=== PATIENT | male | born 1955 | race Caucasian/White ===

== ENCOUNTER 2017-10-13 01:01 | Observation (INO) | payer SELFPAY ==
[~2017-10-13] VITALS: Ht 177.8 cm; Wt 88.8 kg
[2017-10-13] VITALS (7 sets, daily range): BP systolic 153–193; BP diastolic 81–96; PULSE 69–78; TEMP 36.5–37.7; O2SAT 93–98; Ht 177.8 cm; Wt 88.8 kg
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
[2017-10-13 02:07] LABS: ALBUMIN 3.9 gm/dl (3.4-5.0); CREATININE 1.24 mg/dl (0.60-1.40)
[2017-10-13 02:15] LABS: CKMB 6.3 ng/ml (0.5-3.6); POTASSIUM 4.2 mmol/L (3.5-5.1); TOTAL PROTEIN 8.2 gm/dl (6.4-8.2)
[2017-10-13 02:42] LABS: BASO % 0.2 %; BASO ABS # 0.02 K/uL (0-0.2); EOS ABS # 0.12 K/uL (0-0.5); HEMOGLOBIN 15.5 g/dL (14.0-18.0); IG# 0.07 K/uL (0.00-0.02); LYMPH % 13.3 %; LYMPH ABS # 1.65 K/uL (1.2-3.4); MEAN CELL VOLUME 95.1 fL (80-100); MEAN CORPUSCULAR HEMOGLOBIN 32.8 pg (25-34); MEAN CORPUSCULAR HGB CONC 34.4 g/dl (32-36); MEAN PLATELET VOLUME 10.3 fL (7.4-10.4); MONO % 5.5 %; MONO ABS # 0.68 K/uL (0.11-0.59); NEUT % 79.4 %; NEUT ABS # 9.89 K/uL (1.4-6.5); PLATELET COUNT 288 K/uL (130-400); RED CELL DISTRIBUTION WIDTH CV 13.5 % (11.5-14.5); RED CELL DISTRIBUTION WIDTH SD 46.9 fL (36.4-46.3); WHITE BLOOD COUNT 12.43 K/uL (4.8-10.8)
[2017-10-13 04:00] LABS: PTT PATIENT 23.6 SECONDS (21.0-31.0)
[2017-10-13] MEDS ORDERED: LORAZEPAM 2 MG/ML 1 ML VIAL IV PRN (04:30)
[2017-10-13] MEDS ORDERED: ACETAMINOPHEN 325 MG TAB PO PRN (04:30)
[2017-10-13] MEDS ORDERED: OXYCODONE/ACETAMINOPHEN 5-325 TAB PO PRN (04:30)
[2017-10-13] MEDS ORDERED: PROCHLORPERAZINE INJ 5 MG in SYRINGE 4 ML IV PRN (04:30)
[2017-10-13] MEDS ORDERED: GABAPENTIN 600 MG TAB PO SCH (04:30)
[2017-10-13] MEDS ORDERED: LORAZEPAM INJ 1 MG in SYRINGE 0.5 ML IV PRN (04:30)
[2017-10-13] MEDS ORDERED: NITROGLYCERIN 0.4 MG SL PER TAB CHARGE SL PRN (04:30)
[2017-10-13] MEDS ORDERED: MULTI-VITAMIN INFUSION INJ 10 ML, THIAMINE HCL INJ 100 MG, FoLIC ACID INJ 1 MG in SODIU... IV STA (04:40)
[2017-10-13] MEDS ORDERED: GABAPENTIN 600 MG TAB PO STA (04:42)
[2017-10-13] MEDS ORDERED: CLONIDINE HCL 0.1 MG TAB PO STA (04:43)
[2017-10-13] MEDS ORDERED: LISINOPRIL 5 MG TAB PO STA (04:54)
[2017-10-13] MEDS ORDERED: IV FLUIDS COMPLETED PRN (05:15)
[2017-10-13 06:00] LABS: INR 0.9 (0.9-1.1)
[2017-10-13] MEDS ORDERED: INFLUENZA ADMINISTRATION CHARGE ONE (06:15)
[2017-10-13] MEDS ORDERED: PNEUMOCOCCAL POLYSACCHARIDES 25 MCG/0.5 ML VIAL/SYR IM. ONE (06:15)
[2017-10-13] MEDS ORDERED: INFLUENZA VIRUS QUAD VACCINE 0.5 ML SYR IM. ONE (06:15)
[2017-10-13] MEDS ORDERED: PNEUMOCOCCAL ADMINISTRATION CHARGE ONE (06:15)
--- NOTE | 2017-10-13 06:58 | DIAGNOSTIC IMAGING REPORT ---
HEAD WITHOUT CONTRAST (CT) CLINICAL HISTORY: 61 years-old Male with episode of unresponsiveness. Acutely altered mental status TECHNIQUE: Multiple axial CT images of the head were obtained without contrast. A dose lowering technique was utilized adhering to the principles of ALARA. CT DOSE: 691.05 mGy.cm COMPARISON: None. FINDINGS: No acute intracranial hemorrhage, midline shift, intracranial mass, hydrocephalus, territorial ischemia or abnormal extra-axial collection. Minimal atrophy. Ill-defined areas of low attenuation are seen within the periventricular white matter suggesting chronic microvascular ischemic changes. Encephalomalacia of the right temporal and frontal lobes compatible with remote infarction. The calvarium is intact. Severe mucoperiosteal thickening with volume loss of the right maxillary sinus. Moderate to severe mucoperiosteal thickening of the left maxillary sinus. Moderate ethmoid sinus disease. Mild sphenoid sinus disease. IMPRESSION: 1. No acute intracranial abnormality identified. 2. Encephalomalacia of the right temporal and frontal lobes compatible with remote infarction. 3. Paranasal sinus disease as above. The above report was generated using voice recognition software. It may contain grammatical, syntax or spelling errors. Electronically signed by: Vinnie Anglin M.D. 10/13/2017 6:56 AM Dictated Date/Time: 10/13/2017 6:53 AM
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
[2017-10-13] MEDS ORDERED: CLONIDINE HCL 0.1 MG TAB PO ONE (08:30)
[2017-10-13] MEDS: ENOXAPARIN 40 MG/0.4 ML SYR SQ SCH (08:43)
[2017-10-13] MEDS ORDERED: CHLORTHALIDONE 25 MG TAB PO SCH (09:00)
[2017-10-13] MEDS ORDERED: GADAVIST IV PRN (10:45)
--- NOTE | 2017-10-13 11:02 | DIAGNOSTIC IMAGING REPORT ---
BRAIN COMBO FOR SEIZURE HISTORY: 61 years-old Male seizure patient found unresponsive. COMPARISON: CT head of same day TECHNIQUE: Multiplanar multisequence MRI the brain was obtained both with and without the use of 8 mL Gadavist utilizing seizure protocol. FINDINGS: There is no restricted diffusion to suggest acute infarction. The midline structures including the corpus callosum, brainstem, optic chiasm, pituitary gland and infundibulum appear unremarkable the sagittal T1 series. No cerebellar tonsillar herniation. Degenerative changes of the imaged cervical spine are noted. There is no acute intracranial hemorrhage, midline shift, abnormal extra-axial collection or hydrocephalus. Minimal periventricular and subcortical T2/FLAIR elongation suggests mild chronic microvascular ischemic changes. Encephalomalacia and gliosis is noted within the right frontal and bilateral temporal lobes suggesting areas of prior infarction. The thin section coronal T2 images are moderately motion degraded. No evidence of mesial temporal sclerosis, cortical dysplasia or acute seizure focus. Indeterminate 2 mm T2 hyperintense focus involves the medial right temporal lobe, image 27 series 8. There is no abnormal intra-axial or extra-axial enhancement identified. The major flow voids at the level of the skull base are patent. The left vertebral artery appears dominant. Trace left mastoid effusion. Severe right and moderate severe left maxillary mucosal disease with mild inferior right frontal and moderate bilateral ethmoid sinus mucosal disease. Mild to moderate mucosal disease also seen within the sphenoid sinuses. Scalp, covering and soft tissues are unremarkable. IMPRESSION: 1. No acute intracranial abnormality identified. No acute infarction or abnormal enhancement. 2. Encephalomalacia and gliosis within the right frontal and bilateral temporal lobes, right greater than left suggests areas of remote infarction. 3. Suggested minimal chronic microvascular ischemic changes. 4. Trace left pleural effusion with paranasal sinus disease as above. The above report was generated using voice recognition software. It may contain grammatical, syntax or spelling errors. Electronically signed by: Vinnie Anglin M.D. 10/13/2017 11:01 AM Dictated Date/Time: 10/13/2017 10:51 AM
[2017-10-13] MEDS: GABAPENTIN 600MG Q6H DOSE PO SCH ×2 (11:52→18:37)
--- NOTE | 2017-10-13 14:06 | DIAGNOSTIC IMAGING REPORT ---
CAROTID DOPPLER NECK ART CLINICAL HISTORY: 61 years-old Male with syncope. Acute syncope COMPARISON: None available TECHNIQUE: Multiple real time sonographic images of the carotid bifurcations were obtained assessing espinosa scale, color Doppler and spectral wave form appearance FINDINGS: RIGHT INTERNAL CAROTID: The peak systolic velocity measured 76 cm/sec. The end diastolic velocity measured 29 cm/sec. The ICA to CCA ratio measured 1.1 which correlates with a stenosis of 0-50%. LEFT INTERNAL CAROTID: The peak systolic velocity measured 102 cm/sec. The end diastolic velocity measured 16 cm/sec. The ICA to CCA ratio measured 0.7 which correlates with a stenosis of 0-50%. There is normal antegrade vertebral flow bilaterally. IMPRESSION: 1. No hemodynamically significant stenosis or significant atherosclerotic plaquing. 2. Normal antegrade vertebral flow bilaterally. The above report was generated using voice recognition software. It may contain grammatical, syntax or spelling errors. Electronically signed by: Vinnie Anglin M.D. 10/13/2017 2:05 PM Dictated Date/Time: 10/13/2017 2:03 PM
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
[2017-10-13] MEDS ORDERED: LISINOPRIL 10 MG TAB PO ONE (19:15)
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
[2017-10-14] VITALS (8 sets, daily range): BP systolic 166–205; BP diastolic 88–120; PULSE 57–63; TEMP 36.7–37.3; O2SAT 95–97
[2017-10-14] MEDS: GABAPENTIN 600MG Q8H DOSE PO SCH ×3 (00:53→16:55)
[2017-10-14 06:00] LABS: BASO % 0.2 %; BASO ABS # 0.02 K/uL (0-0.2); EOS ABS # 0.33 K/uL (0-0.5); HEMATOCRIT 42.1 % (42-52); HEMOGLOBIN 13.8 g/dL (14.0-18.0); IG# 0.02 K/uL (0.00-0.02); LYMPH % 27.9 %; LYMPH ABS # 2.29 K/uL (1.2-3.4); MEAN CELL VOLUME 96.8 fL (80-100); MEAN CORPUSCULAR HEMOGLOBIN 31.7 pg (25-34); MEAN CORPUSCULAR HGB CONC 32.8 g/dl (32-36); MEAN PLATELET VOLUME 10.3 fL (7.4-10.4); MONO % 11.4 %; MONO ABS # 0.94 K/uL (0.11-0.59); NEUT % 56.3 %; NEUT ABS # 4.61 K/uL (1.4-6.5); PLATELET COUNT 268 K/uL (130-400); RED CELL DISTRIBUTION WIDTH CV 13.9 % (11.5-14.5); RED CELL DISTRIBUTION WIDTH SD 49.5 fL (36.4-46.3); WHITE BLOOD COUNT 8.21 K/uL (4.8-10.8)
[2017-10-14 06:32] LABS: CALCIUM 8.4 mg/dl (8.5-10.1); CREATININE 0.98 mg/dl (0.60-1.40); POTASSIUM 4.1 mmol/L (3.5-5.1)
[2017-10-14] MEDS ORDERED: CLONIDINE HCL 0.1 MG TAB PO SCH (08:00)
[2017-10-14] MEDS ORDERED: CLONIDINE HCL 0.1 MG TAB PO ONE (08:00)
[2017-10-14] MEDS ORDERED: MULTIVITAMIN TAB PO SCH (09:00)
[2017-10-14] MEDS ORDERED: LISINOPRIL 5 MG TAB PO SCH (09:00)
[2017-10-14] MEDS ORDERED: LISINOPRIL 20 MG TAB PO SCH (09:00)
[2017-10-14] MEDS ORDERED: AMLODIPINE BESYLATE 5 MG TAB PO SCH (09:00)
[2017-10-14] MEDS ORDERED: THIAMINE HCL 100 MG TAB PO SCH (09:00)
[2017-10-14] MEDS: ENOXAPARIN 40 MG/0.4 ML SYR SQ SCH (09:05)
--- NOTE | 2017-10-14 10:46 | ECHOCARDIOGRAM REPORT ---
*NOTICE TO RECEIVING DEMOCRAT AGENCY This information is strictly Confidential and protected under [place] law. [place] law prohibits you from making any further disclosure of this information unless further disclosure is expressly permitted by the written consent of the person to whom it pertains or is authorized by law. A general authorization for the release of medical or other information is not sufficient for this purpose. Hospital accepts no responsibility if the information is made available to any other person, INCLUDING THE PATIENT. Interpretation Summary * Name: VIRGINIE ETIENNE Study Date: 10/13/2017 02:07 PM BP: 153/84 mmHg * Patient Location: C.2T\S\S230\S\2 HR: 79 * : 1955 (M/d/yyyy) Gender: Male Height: 70 in * Age: 61 yrs Ethnicity: CA Weight: 186 lb * Ordering Physician: Marilyn Martínez * Referring Physician: UNKNOWN * Performed By: Sherri Monge RCS * * Reason For Study: ABN TROP / SYNCOPE VS SEIZURE * BSA: 2.0 m2 * -- Conclusions -- * Normal LV chamber size with mild concentric LVH. * Normal LV systolic function, EF 55-60% * No segmental left ventricular wall motion abnormalities are noted. * Grade II diastolic dysfunction. * No significant valvular pathology. * Intact interatrial septum. Procedure Details * A complete two-dimensional transthoracic echocardiogram was performed (2D, M-mode, Doppler and color flow Doppler). * A saline contrast injection was performed to assess for cardiac shunting. * The injection was performed through an intravenous line in the left arm. * The attending nurse who injected the saline contrast was RANDALL HARE, RN. * A total of 20 cc of agitated saline was given. Left Ventricle * The left ventricle is normal in size. * There is mild concentric left ventricular hypertrophy. * Left ventricular systolic function is normal. * No segmental left ventricular wall motion abnormalities are noted. * Ejection Fraction = 55-60%. * The left ventricular wall motion is normal. Right Ventricle * The right ventricular cavity size is normal (basal dimension <4.2 cm in right ventricular apical 4-chamber view). * The right ventricular systolic function is normal as assessed by tricuspid annular plane systolic excursion (TAPSE) (normal >1.5 cm). Atria * The left atrial size is normal. * Right atrial size is normal. * The interatrial septum is intact with no evidence for an atrial septal defect. Mitral Valve * The mitral valve is normal in structure and function. Tricuspid Valve * The tricuspid valve is normal in structure and function. Aortic Valve * The aortic valve is normal in structure and function. Pulmonic Valve * The pulmonary valve is not well seen, but the Doppler examination is normal without significant regurgitation or stenosis. Great Vessels * The aortic root is normal size. Pericardium/Pleural * There is no pericardial effusion. Left Ventricular Diastolic Function * Diastolic dysfunction, Grade II (pseudonormalization pattern). MMode 2D Measurements and Calculations IVSd 2.0 cm IVSs 1.9 cm LVIDd 4.1 cm LVIDs 3.0 cm LVPWd 1.4 cm LVPWs 1.5 cm IVS/LVPW 1.5 FS 26.4 % EDV(Teich) 75.3 ml ESV(Teich) 36.0 ml EF(Teich) 52.2 % EDV(cubed) 70.2 ml ESV(cubed) 27.9 ml EF(cubed) 60.2 % % IVS thick -1.51 % % LVPW thick 9.6 % LV mass(C)d 284.6 grams LV mass(C)dI 140.6 grams/m\S\2 LV mass(C)s 200.3 grams LV mass(C)sI 99.0 grams/m\S\2 SV(Teich) 39.3 ml SI(Teich) 19.4 ml/m\S\2 SV(cubed) 42.3 ml SI(cubed) 20.9 ml/m\S\2 Ao root diam 3.3 cm Ao root area 8.6 cm\S\2 ACS 2.0 cm LA dimension 2.5 cm LA/Ao 0.76 LVOT diam 2.0 cm LVOT area 3.2 cm\S\2 LVAd ap4 42.9 cm\S\2 LVLd ap4 9.4 cm EDV(MOD-sp4) 156.5 ml EDV(sp4-el) 166.1 ml LVAs ap4 25.6 cm\S\2 LVLs ap4 7.3 cm ESV(MOD-sp4) 72.1 ml ESV(sp4-el) 76.3 ml EF(MOD-sp4) 53.9 % EF(sp4-el) 54.1 % LVAd ap2 33.7 cm\S\2 LVLd ap2 8.4 cm EDV(MOD-sp2) 106.0 ml EDV(sp2-el) 114.5 ml LVAs ap2 20.2 cm\S\2 LVLs ap2 6.4 cm ESV(MOD-sp2) 53.6 ml ESV(sp2-el) 53.9 ml EF(MOD-sp2) 49.4 % EF(sp2-el) 52.9 % LVLd %diff -11.67 % EDV(MOD-bp) 133.0 ml LVLs %diff -13.41 % ESV(MOD-bp) 67.3 ml EF(MOD-bp) 49.4 % SV(MOD-sp4) 84.3 ml SI(MOD-sp4) 41.7 ml/m\S\2 SV(MOD-sp2) 52.3 ml SI(MOD-sp2) 25.9 ml/m\S\2 SV(MOD-bp) 65.7 ml SI(MOD-bp) 32.5 ml/m\S\2 SV(sp4-el) 89.9 ml SI(sp4-el) 44.4 ml/m\S\2 SV(sp2-el) 60.6 ml SI(sp2-el) 29.9 ml/m\S\2 Doppler Measurements and Calculations MV E max jonathon 86.8 cm/sec MV A max jonathon 68.5 cm/sec MV E/A 1.3 MV P1/2t max jonathon 92.3 cm/sec MV P1/2t 87.9 msec MVA(P1/2t) 2.5 cm\S\2 MV dec slope 307.6 cm/sec\S\2 MV dec time 0.23 sec Ao V2 max 146.4 cm/sec Ao max PG 8.6 mmHg Ao max PG (full) 3.5 mmHg CAROLYN(V,A) 2.5 cm\S\2 CAROLYN(V,D) 2.5 cm\S\2 AI max jonathon 306.9 cm/sec AI max PG 37.7 mmHg AI dec slope 127.0 cm/sec\S\2 AI P1/2t 707.7 msec LV V1 max PG 5.1 mmHg LV V1 max 112.5 cm/sec MR max jonathon 616.0 cm/sec MR max PG 151.8 mmHg PA V2 max 90.6 cm/sec PA max PG 3.3 mmHg TR max jonathon 289.0 cm/sec
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
[2017-10-14] MEDS ORDERED: LEVETIRACETAM 500 MG TAB PO SCH ×2 (16:30→21:00)
[2017-10-14] MEDS ORDERED: LEVETIRACETAM 500 MG TAB PO ONE (16:30)
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
[2017-10-14] MEDS ORDERED: NRN600 PO (17:36)
[2017-10-14] MEDS ORDERED: LSN40 PO (17:36)
[2017-10-14] MEDS ORDERED: MULT-890 PO (17:36)
[2017-10-14] MEDS ORDERED: FLV1 PO (17:36)
[2017-10-14] MEDS ORDERED: NRV5 PO (17:36)
[2017-10-14] MEDS ORDERED: LEVE500T13 PO (17:36)
[2017-10-14] MEDS ORDERED: THM100 PO (17:36)
--- NOTE | 2017-10-14 17:47 | Discharge Instructions ---
Discharge Instructions Date of Service Oct 14, 2017. Admission Reason for Admission: Syncope Discharge Discharge Diagnosis / Problem: possible Seizure, Alcohol withdrawal symptoms Discharge Goals Goal(s): Decrease discomfort, Improve function, Diagnostic testing, Therapeutic intervention Activity Recommendations Activity Limitations: per Instructions/Follow-up section Driving or Machine Use: . Instructions / Follow-Up Instructions / Follow-Up Please follow-up with Dr. Valladares on October 18 at 12:45PM in [place] - this will now be your primary care office Please follow-up with Dr. Martínez, neurology, in 2-3 weeks * NO driving for 6 months; no heights, no swimming alone * You will be prescribed Keppra 500mg twice daily to prevent seizures * You will be on amlodipine 10mg daily and Lisinopril 40mg daily for blood pressure - primary care doctor will recheck blood pressure in the office * Please stop alcohol use - take thiamine, folic acid, and multivitamin daily. Take Gabapentin for the next 5 days Current Hospital Diet Patient's current hospital diet: AHA Diet (Heart Healthy) Discharge Diet Recommended Diet: AHA Diet (Heart Healthy) Pending Studies Studies pending at discharge: no Medical Emergencies . Who to Call and When: Medical Emergencies: If at any time you feel your situation is an emergency, please call 911 immediately. . Non-Emergent Contact Non-Emergency issues call your: Primary Care Provider, Neurologist . . "Provider Documentation" section prepared by Bre Vick. . VTE Core Measure Inpt VTE Proph given/why not?: Enoxaparin (Lovenox)SQ
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
[2017-10-15] MEDS ORDERED: GABAPENTIN 600MG Q12H DOSE PO SCH (06:00)
--- NOTE | 2017-10-15 07:57 | ELECTROENCEPHALOGRAPH REPORT ---
FOR: Dr. Molina, Dr. Martínez and Marilyn Pride. CLINICAL DIAGNOSIS: Syncope with post-syncopal confusion, question seizure. ELECTROENCEPHALOGRAM DIAGNOSIS: Essentially normal during wakefulness and brief duration of drowsiness. DESCRIPTION OF TRACING: This EEG was done as a bedside recording and was of good technical quality with few or no muscle movement artifacts. Photic stimulation was performed. Video analysis of patient movements and behavior were obtained. Drowsiness is seen very briefly towards the end of the recording. During wakefulness, there is evidence for normal appearing background rhythm in the alpha range of up to 9-10 Hz of maximum frequency and 30 microvolts of maximum amplitude. This is maximum posterior head regions bilaterally symmetrical. Polymorphic mid frequency theta activity is seen over all head regions without clear focal or regional predominance. Anterior head region maximum bilaterally symmetrical low voltage fast activity in the beta range is present. Photic stimulation provoked some modest driving response of total photomyogenic or photoparoxysmal component. Drowsiness was very briefly recorded and shows no abnormalities. At no time during the waking or brief duration drowsy tracing is there evidence for potentially epileptogenic activity in the form of polyspike or spike wave bursts, focal sharp waves or focal spikes. INTERPRETATION: This electroencephalography is essentially normal during wakefulness without evidence for focal or generalized encephalopathy and without evidence for potentially epileptogenic activity, but the absence of the latter does not exclude the diagnosis of a seizure disorder and clinical correlation is required.
[2017-10-15] MEDS ORDERED: LISINOPRIL 40 MG TAB PO SCH (09:00)
[2017-10-15] MEDS ORDERED: AMLODIPINE BESYLATE 5 MG TAB PO SCH (09:00)
[2017-10-16] MEDS ORDERED: GABAPENTIN 600MG X1 DOSE PO SCH (08:00)
== END 2017-10-14 18:35 | disposition home or self-care (01) ==
LOC: EDBD 01:01 → C.EDB 01:02 → C.2T 03:28 → ENRESERV 03:56
PROVIDERS: ADMIT Family Medicine; ATTEND Family Medicine
DX: R55 Syncope and collapse (principal); I16.0 Hypertensive urgency; R79.89 Other specified abnormal findings of blood chemistry; F10.129 Alcohol abuse with intoxication, unspecified; Z87.891 Personal history of nicotine dependence; Z87.820 Personal history of traumatic brain injury

== ENCOUNTER 2023-11-22 11:56 | Inpatient (IN) ==
[2023-11-22] MEDS: OPTIRAY 320 125ml IV ONE (12:22)
[2023-11-22 12:28] LABS: iSTAT Creatinine 1.1 mg/dl (0.6-1.3); iSTAT Hemoglobin 17.3 g/dl (14.0-18.0); iSTAT Ionized Calcium 1.14 mmol/l (1.12-1.32); iSTAT Potassium 4.4 mmol/L (3.3-5.0)
[2023-11-22 12:28] LABS: Basophils # (auto) 0.03 K/uL (0.00-0.20); Basophils % (auto) 0.4 %; Eosinophils # (auto) 0.32 K/uL (0.00-0.50); Eosinophils % (auto) 3.7 %; Hematocrit (blood only) 51.4 % (42.0-52.0); Hemoglobin 17.3 g/dl (14.0-18.0); Immature Granulocytes # (auto) 0.08 K/uL (0.01-0.20); Immature Granulocytes % (auto) 0.9 %; Lymphocytes % (auto) 23.4 %; Mean Corpuscular Hemoglobin 31.5 pg (25.0-34.0); Mean Corpuscular Hgb Conc 33.7 g/dL (32.0-36.0); Mean Corpuscular Volume 93.6 fL (80.0-100.0); Mean Platelet Volume 10.1 fL (9.4-12.4); Monocytes # (auto) 0.72 K/uL (0.11-0.59); Monocytes % (auto) 8.4 %; Neutrophils % (auto) 63.2 %; Platelet Count 272 K/uL (130-400); RDW Coefficient of Variation 13.3 % (11.5-14.5); RDW Standard Deviation 45.8 fL (36.4-46.3); Red Blood Count 5.49 M/uL (4.70-6.10); White Blood Count 8.55 K/ul (4.8-10.8)
[2023-11-22] MEDS: LABETALOL HCL IV 5 MG/ML 20ML IV STA ×3 (12:42→13:57)
[2023-11-22] MEDS: LABETALOL HCL IV 5 MG/ML 20ML IV ONE (12:43)
--- NOTE | 2023-11-22 12:51 | XRay Report ---
XR chest 1V portable CLINICAL HISTORY: neuro deficit, acute stroke suspected COMPARISON STUDY: No previous studies for comparison. FINDINGS: Old, healed right clavicular fracture is present. There is no pneumothorax or pleural effus ion. No consolidation is identified. There is no evidence for overt pulmonary edema. Cardiac size is at the upper limits of normal. IMPRESSION: No acute cardiopulmonary findings. ACT 112: Negative or not required by law. Electronically signed by: Celso Astudillo M.D. 11/22/2023 12:49 PM
--- NOTE | 2023-11-22 12:51 | CT Scan Report ---
CTA ANGIOGRAPHY OF THE HEAD CLINICAL HISTORY: neuro deficit, acute stroke suspected COMPARISON STUDY: MRI of the brain and head CT October 13, 2017. TECHNIQUE: Helical axial images of the head were obtained following uneventful intravenous administr ation of 117 cc of Optiray. Sagittal and coronal reconstructions were viewed as well as maximal inten sity projections on an independent 3-D workstation. Automated exposure control was utilized for the study. A dose lowering technique was utilized adhering to the principles of ALARA. CT DOSE: 1091.25 mGy.cm FINDINGS: Right frontal and temporal lobe encephalomalacia is unchanged from earlier exams. Ventricul ar system is stable. Basal cisterns are patent. No acute hemorrhage is identified on this contrast en hanced exam. The bilateral M1, M2, A1 and A2 segment are patent. There is moderate plaque within the cavernous carotids without significant stenosis. The right posterior cerebral artery is not visualize d. This may reflect age indeterminate occlusion. No definite thrombus is identified on this exam. Lef t vertebral artery is dominant. There is no intracranial aneurysm. Basilar artery and the left sport shoe spike assembler ior cerebral artery are patent. IMPRESSION: 1. Nonvisualization of the right posterior cerebral artery. This suggests age indeterminate occlusion . 2. Otherwise, patent intracranial vessels. No intracranial aneurysm. ACT 112: Negative or not required by law. Electronically signed by: Celso Astudillo M.D. 11/22/2023 12:48 PM
[2023-11-22 12:53] LABS: Potassium 4.6 mmol/L (3.5-5.1)
[2023-11-22 12:54] LABS: Albumin Globulin Ratio 1.3 (0.9-2); Albumin Level 4.6 gm/dl (3.4-5.0); BUN Creatinine Ratio 10.1 (10-20); Bilirubin,Total 0.6 mg/dl (0.2-1.0); Calcium 9.5 mg/dl (8.6-10.3); Est GFR (African American) 79.3 ml/min; Est GFR (Non-African American) 68.4 ml/min; Globulin 3.5 gm/dl (2.5-4.0); Magnesium 2.1 mg/dl (1.7-2.4); Total Protein 8.1 gm/dl (6.0-8.3); Troponin I High Sensitivity 76.3 pg/ml (0-20)
[2023-11-22 12:57] LABS: Partial Thromboplastin Time 27 Seconds (21-31); Prothrombin Time 10.8 Seconds (9.0-12.0)
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
--- NOTE | 2023-11-22 12:57 | CT Scan Report ---
HEAD CT NONCONTRAST CT DOSE: HISTORY: neuro deficit, acute stroke suspected TECHNIQUE: Multiaxial CT images of the head were performed without the use of intravenous contrast. A utomated exposure control was utilized for this study. A dose lowering technique was utilized adheri ng to the principles of ALARA. Comparison: Head CT 10/13/2017. Findings: Chronic opacification of the right maxillary sinus. Mild mucosal thickening within the left maxillary sinus and a few partially opacified ethmoid air cells. This has improved in the interval. Trace fluid within the right sphenoid sinus. The mastoid air cells are clear. The calvarium and skull base are intact. There is no mass, hematoma, midline shift, acute infarct. White matter hypodensity is nonspecific but suggestive of microvascular ischemic change. The ventricles and sulci demonstrate mild age-related involutional changes. 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 Impression: No significant change compared to the prior study. No acute intracranial abnormality. ACT 112: Negative or not required by law. Electronically signed by: Deshaun Fields M.D. 11/22/2023 12:55 PM
--- NOTE | 2023-11-22 13:14 | Emergency Department Note ---
Impression & Plan Hypertensive emergency, Stroke-like symptoms, Confusion, Double vision, Elevated troponin ED Provider Note NAME: VIRGINIE ETIENNE AGE: 68 SEX: M : 1955 ARRIVES VIA: Walk-In INFORMANT: [Patient][family] ED PROVIDER(S): [Daniel Bird MD] CHIEF COMPLAINT: TIA symptoms HISTORY OF PRESENT ILLNESS: The patient is a 68-year-old male whose had symptoms for 1 month. Things worsened in the last week. The patient has been falling, he has been somewhat confused. The family thought they saw a facial droop. His right eye seemed at times to deviate laterally. He has complained of some double vision. The patient is not on any medications. He stopped his blood pressure medication a year ago because he was feeling dizzy. He has not seen his doctor in some time. Patient's family was concerned for stroke. They finally convinced him today to present to the hospital. In triage, his blood pressure was exceedingly high. PMHx/PSHx/Social Hx: See Below PHYSICAL EXAM: GENERAL: Patient is in no acute distress. HEENT: No acute trauma, normocephalic atraumatic, mucous membranes moist, no nasal congestion. The patient's right eye does seem to deviate laterally. NECK: No stridor, no adenopathy, no meningismus, trachea is midline. LUNGS: Clear to auscultation bilaterally, no wheeze, no rhonchi, breath sounds equal. HEART: Without murmurs gallops or rubs, regular rate and rhythm. ABDOMEN: Soft, nontender, no peritonitis. EXTREMITIES: No cyanosis, full range of motion of all the joints without pain or difficulty. Mild bilateral pedal edema. NEUROLOGIC: There does appear to be a subtle left facial droop at times when he speaks. No speech slur. He has poor cerebellar dysfunction in the upper extremities bilaterally. There is no real drift. No drift of the lower extremities. SKIN: No jaundice, no diaphoresis. DIFFERENTIAL DIAGNOSIS: Stroke, intracranial bleeding, hypertensive emergency, electrolyte imbalance, anemia, cardiac ischemia, among others. EMERGENCY DEPARTMENT PROCEDURES: MEDICAL DECISION MAKING: There is no leukocytosis or concerning anemia. There is a normal platelet count. No coagulopathy. No renal failure or significant electrolyte abnormality. No concerning liver enzyme elevation. The patient appeared to be in a euthyroid state. ECG shows a sinus tachycardia with LVH, no obvious ST elevation. Cardiac enzyme testing x 1 is slightly elevated. This elevation could be secondary to cardiac injury or mismatch from his very high blood pressure. Alcohol level was undetectable. Brain CT showed no acute bleed or mass effect. CT angio of the head and neck were performed. There was occlusion of the right posterior cerebral artery that was felt age-indeterminate. The remaining vessels appeared patent. On exam, the patient was markedly hypertensive. His right eye seemed to deviate laterally. He had poor cerebellar function in both upper extremities but no extremity drift. There was a subtle left facial droop but he was not slurring his speech. The patient was clearly out of the window for TNK. He has had symptoms for a month. The patient was aggressively managed given his high blood pressure. He received IV labetalol, 10 mg. This was given 3 times by me. The blood pressure was improving with the labetalol administration. I did speak with the patient and his significant other. The patient was initially somewhat reluctant to stay in the hospital but then did finally consent to hospitalization and more of a workup. I am concerned about stroke given his exam, history and markedly elevated blood pressure. I did speak with the case management team, the on-call hospitalist was consulted. Prior/Outside records/notes reviewed: None ECG per my interpretation: Indication was possible stroke. The ECG shows a sinus tachycardia with a rate of 108. LVH is present. There is some artifact seen in the lateral leads. There is no acute ST elevation. No PVCs. The QTc is 479. Continuous Cardiac Monitoring per my interpretation: An order was placed for continuous cardiac monitoring. The monitor shows a rate of 69 with normal sinus rhythm. Imaging/x-ray results per my interpretation: Chest x-ray does not show mediastinal widening, pneumonia or pneumothorax. Chronic Medical/Social conditions affecting care: Advanced age, medication noncompliance. Care/Management discussed with: Case management, the on-call hospitalist. Level of care consideration(s): After review of the information above and other included data: --I believe the patient requires escalation of care to admission Critical Care Note: I have personally spent 54 minutes of critical care time in the direct management of this patient. This includes bedside care, interpretation of diagnostic studies, and testing, discussion with consultants, patient, and family members, and other required patient management activities. This 54 minutes is in excess of all separately billable procedures. DISPOSITION: Admission with neurology consult Past Med/Surg History Medical History Alcohol use Hypertension Social History Smoking Status: Current every day smoker Tobacco Type: Cigarettes Second Hand Exposure: No; Do You Dip or Chew Tobacco: No; Tobacco Cessation Education Requested by Patient: No Hx Alcohol Use: Yes Alcohol type: beer Hx Substance Use: No Preferred Language: Citizen Of The [place] Communication Ability: Effective Street Light Mechanic Required: No Beliefs That Will Affect Care: None Current Living Situation: Spouse Other Information That Helps Us Care for You: No Feels Safe at Home: Yes Safety Concerns: Feels Safe At This Time Assistive Devices: None Allergies Allergies Allergy/AdvReac Type Severity Reaction Status Date / Time phenytoin Allergy Unknown unknown Verified 10/13/17 01:21 Home Meds Home Medications Medication Instructions Recorded Confirmed No Known Home Medications 11/22/23 11/22/23 Results & Data (ED) Vital Signs Vital Signs - 24 hr 11/22/23 12:03 11/22/23 12:39 11/22/23 12:39 Temperature 36.6 C Temperature Source Temporal Artery Scan Pulse Rate 88 93 H Pulse Rate [Apical] 105 H Pulse Rate from SpO2 Sensor 93 H Respiratory Rate 20 19 Respiratory Effort / Characteristics Non-Labored Non-Labored Respiratory Depth Normal Normal Respiratory Pattern Regular Blood Pressure 250/137 H Blood Pressure [Right Arm] 227/130 H Blood Pressure Mean 174 Blood Pressure Mean [Right Arm] 162 Blood Pressure Position [Right Arm] Pulse Oximetry 98 98 98 Oxygen Delivery Method Room Air Room Air Sepsis Recent Fever Within 48 Hours No Sepsis New/Unexplained Change in Mental Status No Sepsis Action Taken by Nursing No Action Required 11/22/23 12:40 11/22/23 12:45 11/22/23 12:45 Temperature Temperature Source Pulse Rate 97 H 93 H 90 Pulse Rate [Apical] Pulse Rate from SpO2 Sensor 97 H 90 Respiratory Rate Respiratory Effort / Characteristics Respiratory Depth Respiratory Pattern Blood Pressure Blood Pressure [Right Arm] Blood Pressure Mean Blood Pressure Mean [Right Arm] Blood Pressure Position [Right Arm] Pulse Oximetry 98 97 Oxygen Delivery Method Sepsis Recent Fever Within 48 Hours Sepsis New/Unexplained Change in Mental Status Sepsis Action Taken by Nursing 11/22/23 12:45 11/22/23 13:09 11/22/23 13:31 Temperature Temperature Source Pulse Rate 67 70 Pulse Rate [Apical] Pulse Rate from SpO2 Sensor Respiratory Rate Respiratory Effort / Characteristics Respiratory Depth Respiratory Pattern Blood Pressure 212/127 H 215/120 H 197/132 H Blood Pressure [Right Arm] Blood Pressure Mean 182 Blood Pressure Mean [Right Arm] Blood Pressure Position [Right Arm] Pulse Oximetry Oxygen Delivery Method Sepsis Recent Fever Within 48 Hours Sepsis New/Unexplained Change in Mental Status Sepsis Action Taken by Nursing 11/22/23 13:57 11/22/23 14:00 Temperature Temperature Source Pulse Rate 69 Pulse Rate [Apical] 67 Pulse Rate from SpO2 Sensor Respiratory Rate 18 Respiratory Effort / Characteristics Non-Labored Spontaneous Respiratory Depth Normal Respiratory Pattern Blood Pressure 252/127 H Blood Pressure [Right Arm] 222/116 H Blood Pressure Mean Blood Pressure Mean [Right Arm] 151 Blood Pressure Position [Right Arm] Sitting Pulse Oximetry 97 Oxygen Delivery Method Room Air Sepsis Recent Fever Within 48 Hours Sepsis New/Unexplained Change in Mental Status Sepsis Action Taken by Assisted Medications Current Medication List: was personally reviewed by me Laboratory Data Attestation: I reviewed the patient's lab results. 11/22/23 12:10 11/22/23 12:10 Lab Results 11/22/23 11/22/23 11/22/23 Range/Units 12:10 12:15 12:33 WBC 8.55 (4.8-10.8) K/ul RBC 5.49 (4.70-6.10) M/uL Hgb 17.3 (14.0-18.0) g/dl POC Hgb 17.3 (14.0-18.0) g/dl Hct 51.4 (42.0-52.0) % POC Hct 51 (42-52) % MCV 93.6 (80.0-100.0) fL MCH 31.5 (25.0-34.0) pg MCHC 33.7 (32.0-36.0) g/dL RDW Std Deviation 45.8 (36.4-46.3) fL RDW Coeff of Marisol 13.3 (11.5-14.5) % Plt Count 272 (130-400) K/uL MPV 10.1 (9.4-12.4) fL Immature Gran % (Auto) 0.9 % Neut % (Auto) 63.2 % Lymph % (Auto) 23.4 % [place] % (Auto) 8.4 % Eos % (Auto) 3.7 % Baso % (Auto) 0.4 % Neut # (Auto) 5.40 (1.40-6.50) K/uL Lymph # (Auto) 2.00 (1.20-3.40) K/uL [place] # (Auto) 0.72 H (0.11-0.59) K/uL Eos # (Auto) 0.32 (0.00-0.50) K/uL Baso # (Auto) 0.03 (0.00-0.20) K/uL Immature Gran # (Auto) 0.08 (0.01-0.20) K/uL PT 10.8 (9.0-12.0) Seconds INR 1.0 (0.9-1.1) APTT 27 (21-31) Seconds PTT Ratio 1.0 POC Sodium 142 (135-144) mmol/L Sodium 141 (136-145) mmol/L POC Potassium 4.4 (3.3-5.0) mmol/L Potassium 4.6 (3.5-5.1) mmol/L POC Chloride 107 (101-112) mmol/L Chloride 104 (98-107) mmol/L Carbon Dioxide 26 (21-32) mmol/L POC Total CO2 32 H (24-31) mmol/L Anion Gap 11 (3-11) POC Anion Gap 9.0 L (16-25) mmol/L POC BUN 11 (7-18) mg/dl BUN 11 (6-23) mg/dl Creatinine 1.09 (0.6-1.4) mg/dl POC Creatinine 1.1 (0.6-1.3) mg/dl Est Cr Clr Drug Dosing 73.0 ml/min Est GFR ( Amer) 79.3 ml/min Est GFR (Non-Af Amer) 68.4 ml/min BUN/Creatinine Ratio 10.1 (10-20) Glucose 109 H (70-99(Fasting)) mg/dl POC Glucose 105 H (70-99) mg/dl POC Glucose (other) 110 H (70-99) mg/dl Calcium 9.5 (8.6-10.3) mg/dl POC Ioniz Calcium Selvin 1.14 (1.12-1.32) mmol/l Magnesium 2.1 (1.7-2.4) mg/dl Total Bilirubin 0.6 (0.2-1.0) mg/dl AST 34 (13-39) U/L ALT 27 (7-52) U/L Alkaline Phosphatase 72 (34-104) U/L Troponin I High Sens 76.3 H* (0-20) pg/ml Total Protein 8.1 (6.0-8.3) gm/dl Albumin 4.6 (3.4-5.0) gm/dl Globulin 3.5 (2.5-4.0) gm/dl Albumin/Globulin Ratio 1.3 (0.9-2) Administered Medications Thiamine HCl 500 mg/ Sodium (Chloride) 55 mls @ 210 mls/hr IV Q8H TONY Stop: 11/24/23 15:29 Last Infusion: 11/22/23 17:27 Dose: Infused Documented By: Admin: 11/22/23 16:58 Dose: 210 mls/hr Documented By: CECILY Discontinued Medications Ioversol (Optiray 320 125ml) 117 ml IV ONCE ONE Stop: 11/22/23 12:22 Last Admin: 11/22/23 12:22 Dose: 117 ml Documented By: CHRIS Labetalol HCl (Labetalol Hcl Iv 5 Mg/Ml 20ml) 10 mg IV NOW STA Stop: 11/22/23 12:40 Last Admin: 11/22/23 12:42 Dose: 10 mg Documented By: RADHA Co-signed By: OLIVERIO Labetalol HCl (Labetalol Hcl Iv 5 Mg/Ml 20ml) Confirm Administered Dose 10 mg IV .STK-MED ONE Stop: 11/22/23 12:40 Last Admin: 11/22/23 12:43 Dose: Not Given Documented By: RADHA Labetalol HCl (Labetalol Hcl Iv 5 Mg/Ml 20ml) 10 mg IV NOW STA Stop: 11/22/23 13:00 Last Admin: 11/22/23 13:10 Dose: 10 mg Documented By: RADHA Co-signed By: ADELA Labetalol HCl (Labetalol Hcl Iv 5 Mg/Ml 20ml) 10 mg IV NOW STA Stop: 11/22/23 13:50 Last Admin: 11/22/23 13:57 Dose: 10 mg Documented By: THERESA Co-signed By: RADHA Labetalol HCl (Labetalol Hcl Iv 5 Mg/Ml 20ml) 10 mg IV Q10M PRN PRN Reason: SBP >220 or DBP >120 Stop: 12/22/23 16:49 Last Admin: 11/22/23 16:57 Dose: 10 mg Documented By: CECILY Co-signed By: LAURA Lisinopril (Lisinopril 10 Mg Tab) 10 mg PO NOW STA Stop: 11/22/23 16:58 Last Admin: 11/22/23 18:17 Dose: 10 mg Documented By: CECILY Imaging Data Radiologist's Impression: Chest X-Ray 11/22/23 12:12 XR chest 1V portable CLINICAL HISTORY: neuro deficit, acute stroke suspected COMPARISON STUDY: No previous studies for comparison. FINDINGS: Old, healed right clavicular fracture is present. There is no pneumothorax or pleural effusion. No consolidation is identified. There is no evidence for overt pulmonary edema. Cardiac size is at the upper limits of normal. IMPRESSION: No acute cardiopulmonary findings. ACT 112: Negative or not required by law. Electronically signed by: Celso Astudillo M.D. 11/22/2023 12:[address] 11/22/23 12:[address] DOSE: HISTORY: neuro deficit, acute stroke suspected TECHNIQUE: Multiaxial CT images of the head were performed without the use of intravenous contrast. Automated exposure control was utilized for this study. A dose lowering technique was utilized adhering to the principles of ALARA. Comparison: Head CT 10/13/2017. Findings: Chronic opacification of the right maxillary sinus. Mild mucosal thickening within the left maxillary sinus and a few partially opacified ethmoid air cells. This has improved in the interval. Trace fluid within the right sphenoid sinus. The mastoid air cells are clear. The calvarium and skull base are intact. There is no mass, hematoma, midline shift, acute infarct. White matter hypodensity is nonspecific but suggestive of microvascular ischemic change. The ventricles and sulci demonstrate mild age-related involutional changes. 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 Impression: No significant change compared to the prior study. No acute intracranial abnormality. ACT 112: Negative or not required by law. Electronically signed by: Deshaun Fields M.D. 11/22/2023 12:55 PM Head CTA 11/22/23 12:12 CTA ANGIOGRAPHY OF THE HEAD CLINICAL HISTORY: neuro deficit, acute stroke suspected COMPARISON STUDY: MRI of the brain and head CT October 13, 2017. TECHNIQUE: Helical axial images of the head were obtained following uneventful intravenous administration of 117 cc of Optiray. Sagittal and coronal reconstructions were viewed as well as maximal intensity projections on an independent 3-D workstation. Automated exposure control was utilized for the study. A dose lowering technique was utilized adhering to the principles of ALARA. CT DOSE: 1091.25 mGy.cm FINDINGS: Right frontal and temporal lobe encephalomalacia is unchanged from earlier exams. Ventricular system is stable. Basal cisterns are patent. No acute hemorrhage is identified on this contrast enhanced exam. The bilateral M1, M2, A1 and A2 segment are patent. There is moderate plaque within the cavernous carotids without significant stenosis. The right posterior cerebral artery is not visualized. This may reflect age indeterminate occlusion. No definite thrombus is identified on this exam. Left vertebral artery is dominant. There is no intracranial aneurysm. Basilar artery and the left posterior cerebral artery are patent. IMPRESSION: 1. Nonvisualization of the right posterior cerebral artery. This suggests age indeterminate occlusion. 2. Otherwise, patent intracranial vessels. No intracranial aneurysm. ACT 112: Negative or not required by law. Electronically signed by: Celso Astudillo M.D. 11/22/2023 12:48 PM Neck CTA 11/22/23 12:12 CT ANGIOGRAM OF THE NECK CLINICAL HISTORY: Neurological deficit. Stroke like symptoms. COMPARISON STUDY: MRI of the brain dated 10/13/2017. TECHNIQUE: Following the IV administration of 117 of Optiray 320, CT angiogram of the neck was performed from the aortic arch to the skull base. Images are reviewed in the axial, sagittal, and coronal planes. 3-D MIPS images are created and assessed. IV contrast was administered without complication. All measurements were calculated based on NASCET criteria. A dose lowering technique was utilized adhering to the principles of ALARA. FINDINGS: Thoracic aorta: Visualized portions of the thoracic aorta are normal in caliber. The aortic arch demonstrates standard 3-vessel anatomy. Right carotid arterial system: The right common carotid artery is widely patent, as are the right internal and external carotid arteries. Left carotid arterial system: The left common carotid artery is widely patent, as are the left internal and external carotid arteries. Vertebral arteries: The vertebral arteries are patent bilaterally noting left- sided dominance. Subclavian arteries: Patent bilaterally. Intracranial vasculature: The right posterior cerebral artery is not identified and likely occluded. The remaining visualized intracranial vessels at the skull base are patent. Jugular veins: Widely patent bilaterally. Brain parenchyma: Right temporal encephalomalacia is partially visualized and consistent with a remote insult. Lung apices: Partially visualized upper lobe lung parenchyma appears clear. Soft tissues: The visualized pharyngeal soft tissues are normal in appearance noting angiographic phase technique. The oropharyngeal airway appears widely patent. The salivary and thyroid glands are normal in appearance. No cervical lymphadenopathy is seen. Skeletal structures: The skeletal structures are osteopenic. There is chronic deformity of the right clavicle. The visualized calvarium at the skull base appears intact. The imaged cervical spine is within normal limits. Sinuses and mastoids: There is a trace left mastoid effusion. The right mastoid air cells are well pneumatized. There is complete opacification of the right maxillary antrum. [id number] mucosal thickening is noted in the left maxillary sinus. Thickening and sclerosis of the sinus parham indicate chronicity. There is also mild mucosal thickening within the sphenoid and ethmoid sinuses. Dentition: There are numerous dental caries. IMPRESSION: 1. Unremarkable CT angiogram of the neck. 2. The right posterior cerebral artery is not visualized. This is consistent with age-indeterminate occlusion, and this represents a change from the 10/13/2017 MRI. Correlate clinically. See report of CT angiogram of the brain performed concurrently for detailed intracranial findings. 3. There are numerous dental caries. Nonemergent follow-up with dentistry is recommended. ACT 112: Negative or not required by law. Electronically signed by: Daniel Hicks M.D. 11/22/2023 12:55 PM Brain MRI 11/22/23 13:57 MRI OF THE BRAIN WITHOUT CONTRAST CLINICAL HISTORY: Stroke-like symptoms, off balance, L facial droop COMPARISON STUDY: MRI of the brain October 13, 2017. Head CT and CTA of the head performed earlier today. TECHNIQUE: Utilizing a 1.5 Celnia magnet and dedicated coil, multiplanar, multiecho imaging of the brain was performed without IV contrast. FINDINGS: There is a 1.3 cm T2 hyperintense focus within the right cerebral peduncle shown on coronal FLAIR image . This is hyperintense on the diffusion-weighted sequence. This appears slightly hyperintense on the ADC map. This is new since previous MRI. No additional foci of signal abnormality on diffusion-weighted sequence are present. Ventricular system is unremarkable. Basal cisterns are patent. Right temporal and right frontal lobe encephalomalacia is unchanged since MRI of October 13, 2017. Mild left temporal lobe encephalomalacia is also unchanged. No intracranial masses identified on this unenhanced exam. Opacification of the right maxillary sinus is chronic. There is mild mucosal thickening of the left maxillary and ethmoid sinuses. IMPRESSION: 1. No acute intracranial findings. 2. 1.3 cm T2 hyperintense focus within the right cerebral peduncle, as described above. This is mildly hyperintense on the diffusion-weighted sequence and slightly hyperintense on the ADC map. This may reflect wallerian degeneration. A subacute infarct could appear similar although is considered less likely. 3. Otherwise, no change in appearance of the brain with multifocal encephalomalacia, as described above. ACT 112: Negative or not required by law. Electronically signed by: Celso Astudillo M.D. 11/22/2023 4:26 PM Discharge Plan Visit Data Chief Complaint: TIA Symptoms Stated Complaint: DOUBLE VISION , LIGHTHEADED, BALANCE OFF ED Provider: Daniel Bird Discharge Problem: Hypertensive emergency, Stroke-like symptoms, Confusion, Double vision, Elevated troponin Patient Disposition: Admitted As Inpatient Condition: Serious Discharge Instructions Interventions: ED Discharge Assessment Last Done: 11/22/23 16:18
--- NOTE | 2023-11-22 13:53 | History & Physical Report ---
Date of Service November 22, 2023 Assessment & Plan (1) Stroke-like symptoms: Plan: Dizziness, gait ataxia, and increased confusion x 1 month Patient fell and struck head 3 weeks ago while getting out of the bathroom; no LOC, not on blood thinners Patient's notes left-sided facial droop x 2 weeks Right eye with left lateral gaze x 1 week In the setting of medication noncompliance over 1 year, and daily alcohol use EKG on arrival revealed sinus tachycardia at 108 bpm; QTc [address] on arrival revealed no acute intracranial abnormalities Brain MRI ordered, pending Echocardiogram ordered, pending No leukocytosis; afebrile Vitamin B12 level ordered, pending TSH ordered, pending Urine drug profile ordered, pending Neurochecks q4h Speech therapy eval for left-sided facial droop Keep n.p.o. pending dysphagia screen Neurology consulted PT/OT consulted A.m. CBC, BMP, A1c, fasting lipid panel (2) Hypertension: Plan: Patient's blood pressure was 250/137 on arrival Labetalol 10 mg IV x 3 given in the ED Continue labetalol 10 mg IV q10m as needed for SBP >200 and DBP >100 Start patient on lisinopril 10 mg p.o. 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 pending dysphagia screen VTE PPx: SCDs for now (discussed with pharmacy; Lovenox 40 mg SQ q24h set to start the morning of 3/2 at 1000 pending better controlled hypertension) History of Present Illness Chief Complaint: TIA symptoms Primary Care Provider: Keith E. Isai Rolon is a 68-year-old male with PMH of HTN and alcohol use. He presented for dizziness, gait ataxia, and increased confusion x 1 month. Patient reports he has been noncompliant with his current hypertension medications for the past year. He notes he did fall 3 weeks ago while in the bathroom and struck his head; no LOC, was able to get back up on his own; he believes he got tangled up in the towel. Left-sided facial droop started 2 weeks ago. Patient reports that he drinks 15 beers daily, with his last drink being the evening of . H e denies history of seizures or alcohol withdrawal, even when cutting back at times. Patient denies PMH of CO, CVA, but notes that his younger brother has had 2 MIs, and that his mother had a stroke. Patient denies smoking, but endorses chewing snuff, and daily alcohol use. He does not use a cane or walker for ambulation at baseline. Patient is hypertensive at 197/132 at time of admission. ED course: Labetalol 10 mg IV x 3 ROS: Patient endorses dizziness both at rest and with exertion, confusion, and changes in vision (diplopia). Patient denies PAIGE, fever, chills, nightsweats, photophobia, facial droop, slurred speech, chest pain, SOB, or abdominal pain. Allergies Allergy/AdvReac Type Severity Reaction Status Date / Time phenytoin Allergy Unknown unknown Verified 10/13/17 01:21 Home Medications Medication Instructions Recorded Confirmed Type No Known Home Medications 11/22/23 11/22/23 History Past Med/Surg History Medical History Alcohol use Hypertension Social History Smoking Status: Current every day smoker Tobacco Type: Cigarettes Second Hand Exposure: No; Do You Dip or Chew Tobacco: No; Tobacco Cessation Education Requested by Patient: No Hx Alcohol Use: Yes Alcohol type: beer Hx Substance Use: No Preferred Language: Maldivian Communication Ability: Effective Death Clearance Coordinator Required: No Beliefs That Will Affect Care: None Current Living Situation: Spouse Other Information That Helps Us Care for You: No Feels Safe at Home: Yes Safety Concerns: Feels Safe At This Time Assistive Devices: None Review of Systems Review of Systems: See HPI above Physical Exam Physical Exam: General: no acute distress; anxious; tobacco odor; non-toxic appearing; well- nourished; cooperative HEENT: normocephalic, atraumatic; no scleral icterus; right eye with fixed lateral deviation; PERRLA w/ EOMs intact; moist mucus membrane; poor dentition; hearing intact; mild left-sided facial droop with smiling; patient has difficulty raising his left eyebrow Neck: supple; no lymphadenopathy; trachea midline; patient is able to shrug shoulders and rotate neck against resistance without pain Skin: warm, dry without signs of tenting; no cyanosis; no rashes, bruising, lesions, or erythema noted CV: chest wall NTP; RRR; S1/S2 normal; no murmurs/rubs/gallops; pulses intact and symmetric at radial, DP, and PT Lungs: no acute respiratory distress; symmetrical chest wall expansion; decreased breath sounds across all lung vick w/o adventitious sounds; no wheezing ABD: Soft, NTP; BS present; no rebound/guarding; no ascites; no distention; negative CVA tenderness MSK: no tics or fasciculations; no edema noted in the LEs b/l, erythematous Neuro: A&Ox3; slow to respond to questioning; fluent speech; left-sided facial droop; no focal deficits; sensation intact in face/UEs/LEs B/L; negative pronator drift Results & Data Results & Data Vital Signs (Past 12 Hours) Vital Signs Temp Pulse Pulse Resp BP BP Pulse Ox 11/22/23 13:31 70 197/132 H 11/22/23 13:09 67 215/120 H 11/22/23 12:45 212/127 H 11/22/23 12:45 90 97 11/22/23 12:45 93 H 11/22/23 12:40 97 H 98 11/22/23 12:39 93 H 98 11/22/23 12:39 105 H 19 227/130 H 98 11/22/23 12:03 36.6 C 88 20 250/137 H 98 O2 Del Method 11/22/23 13:31 11/22/23 13:09 11/22/23 12:45 11/22/23 12:45 11/22/23 12:45 11/22/23 12:40 11/22/23 12:39 11/22/23 12:39 Room Air 11/22/23 12:03 Room Air Laboratory Results Abnormal lab results 11/22/23 11/22/23 11/22/23 Range/Units 12:10 12:15 12:33 Garvin # (Auto) 0.72 H (0.11-0.59) K/uL POC Total CO2 32 H (24-31) mmol/L POC Anion Gap 9.0 L (16-25) mmol/L Glucose 109 H (70-99(Fasting)) mg/dl POC Glucose 105 H (70-99) mg/dl POC Glucose (other) 110 H (70-99) mg/dl Troponin I High Sens 76.3 H* (0-20) pg/ml Diagnostic Findings Chest X-Ray 11/22/23 12:12 XR chest 1V portable CLINICAL HISTORY: neuro deficit, acute stroke suspected COMPARISON STUDY: No previous studies for comparison. FINDINGS: Old, healed right clavicular fracture is present. There is no pneumothorax or pleural effusion. No consolidation is identified. There is no evidence for overt pulmonary edema. Cardiac size is at the upper limits of normal. IMPRESSION: No acute cardiopulmonary findings. ACT 112: Negative or not required by law. Electronically signed by: Celso Astudillo M.D. 11/22/2023 12:[address] 11/22/23 12:[address] DOSE: HISTORY: neuro deficit, acute stroke suspected TECHNIQUE: Multiaxial CT images of the head were performed without the use of intravenous contrast. Automated exposure control was utilized for this study. A dose lowering technique was utilized adhering to the principles of ALARA. Comparison: Head CT 10/13/2017. Findings: Chronic opacification of the right maxillary sinus. Mild mucosal thickening within the left maxillary sinus and a few partially opacified ethmoid air cells. This has improved in the interval. Trace fluid within the right sphenoid sinus. The mastoid air cells are clear. The calvarium and skull base are intact. There is no mass, hematoma, midline shift, acute infarct. White matter hypodensity is nonspecific but suggestive of microvascular ischemic change. The ventricles and sulci demonstrate mild age-related involutional ch anges. 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 Impression: No significant change compared to the prior study. No acute intracranial abnormality. ACT 112: Negative or not required by law. Electronically signed by: Deshaun Fields M.D. 11/22/2023 12:55 PM Head CTA 11/22/23 12:12 CTA ANGIOGRAPHY OF THE HEAD CLINICAL HISTORY: neuro deficit, acute stroke suspected COMPARISON STUDY: MRI of the brain and head CT October 13, 2017. TECHNIQUE: Helical axial images of the head were obtained following uneventful intravenous administration of 117 cc of Optiray. Sagittal and coronal reconstructions were viewed as well as maximal intensity projections on an independent 3-D workstation. Automated exposure control was utilized for the study. A dose lowering technique was utilized adhering to the principles of ALARA. CT DOSE: 1091.25 mGy.cm FINDINGS: Right frontal and temporal lobe encephalomalacia is unchanged from earlier exams. Ventricular system is stable. Basal cisterns are patent. No acute hemorrhage is identified on this contrast enhanced exam. The bilateral M1, M2, A1 and A2 segment are patent. There is moderate plaque within the cavernous carotids without significant stenosis. The right posterior cerebral artery is not visualized. This may reflect age indeterminate occlusion. No definite thrombus is identified on this exam. Left vertebral artery is dominant. There is no intracranial aneurysm. Basilar artery and the left posterior cerebral artery are patent. IMPRESSION: 1. Nonvisualization of the right posterior cerebral artery. This suggests age indeterminate occlusion. 2. Otherwise, patent intracranial vessels. No intracranial aneurysm. ACT 112: Negative or not required by law. Electronically signed by: Celso Astudillo M.D. 11/22/2023 12:48 PM Neck CTA 11/22/23 12:12 CT ANGIOGRAM OF THE NECK CLINICAL HISTORY: Neurological deficit. Stroke like symptoms. COMPARISON STUDY: MRI of the brain dated 10/13/2017. TECHNIQUE: Following the IV administration of 117 of Optiray 320, CT angiogram of the neck was performed from the aortic arch to the skull base. Images are reviewed in the axial, sagittal, and coronal planes. 3-D MIPS images are created and assessed. IV contrast was administered without complication. All measurements were calculated based on NASCET criteria. A dose lowering technique was utilized adhering to the principles of ALARA. FINDINGS: Thoracic aorta: Visualized portions of the thoracic aorta are normal in caliber. The aortic arch demonstrates standard 3-vessel anatomy. Right carotid arterial system: The right common carotid artery is widely patent, as are the right internal and external carotid arteries. Left carotid arterial system: The left common carotid artery is widely patent, as are the left internal and external carotid arteries. Vertebral arteries: The vertebral arteries are patent bilaterally noting left- sided dominance. Subclavian arteries: Patent bilaterally. Intracranial vasculature: The right posterior cerebral artery is not identified and likely occluded. The remaining visualized intracranial vessels at the skull base are patent. Jugular veins: Widely patent bilaterally. Brain parenchyma: Right temporal encephalomalacia is partially visualized and consistent with a remote insult. Lung apices: Partially visualized upper lobe lung parenchyma appears clear. Soft tissues: The visualized pharyngeal soft tissues are normal in appearance noting angiographic phase technique. The oropharyngeal airway appears widely patent. The salivary and thyroid glands are normal in appearance. No cervical lymphadenopathy is seen. Skeletal structures: The skeletal structures are osteopenic. There is chronic deformity of the right clavicle. The visualized calvarium at the skull base appears intact. The imaged cervical spine is within normal limits. Sinuses and mastoids: There is a trace left mastoid effusion. The right mastoid air cells are well pneumatized. There is complete opacification of the right maxillary antrum. Ijuf-fa-cdibnnwa mucosal thickening is noted in the left maxillary sinus. Thickening and sclerosis of the sinus parham indicate chronicity. There is also mild mucosal thickening within the sphenoid and ethmoid sinuses. Dentition: There are numerous dental caries. IMPRESSION: 1. Unremarkable CT angiogram of the neck. 2. The right posterior cerebral artery is not visualized. This is consistent with age-indeterminate occlusion, and this represents a change from the 10/13/2017 MRI. Correlate clinically. See report of CT angiogram of the brain performed concurrently for detailed intracranial findings. 3. There are numerous dental caries. Nonemergent follow-up with dentistry is recommended. ACT 112: Negative or not required by law. Electronically signed by: Daniel Hicks M.D. 11/22/2023 12:55 PM Code Status & VTE Plan Code Status Full code VTE Prophylaxis Plan VTE Prophylaxis will be ordered: Yes Supervising Physician Co-Signing Physician Notes I personally saw and examined the patient. I independently reviewed the labs, EKG, imaging, problem list, medication list, past medical history and family history. I verified all freed points and agree with Deshaun Priest PA-C with the following exceptions and/or additions: 68 year old male presents to the ER with left facial weakness and left sided weakness. Patient denies these symptoms when seen and just feels his balance has been off recently. Reportedly drinks 15 beers/day. O/E Alert and orientated x3, mild left facial droop, difficulty hearing but no definitive confusion, no expressive/depressive aphasia, no pronator drift, EOMI intact without diplopia per patient (although this was noted on triage note), PERRL, normal finger-nose testing, no psychomotor agitation A/P Stroke-like symptoms - no current cerebellar signs on exam. Brain MRI. Consult neurology. Hypertensive urgency - Brain MRI to assess for PRES. Plan to lower BP slowly over the next 24-48 hours. Initial goal sBP < 200. Start lisinopril 10mg PO and labetalol PRN. Suspect his high BP is somewhat chronic since he is supposed to take BP medications at baseline but discontinued this himself and has not taken in years. Alcohol use disorder - surprisingly he does not appear to be in withdrawal despite negative alcohol level. No tremors or tachycardia. Hypertension suspected to be chronic. AWSS ordered and will use lorazepam one dose if scoring above 6 at which point Librium or phenobarbital taper can be started Possible Wernicke's encephalopathy - no ophthalmoplegia on exam but he has noticed changes with his eyesight, mentation and gait. B1 level taken and will start high dose thiamine @ 500mg IV q8h. PG Care Time/CCT Total # of Minutes Spent Total Time Spent with Patient: Total time spent is greater than 50% in coordination of care (as documented) at patient's floor/unit and/or counseling patient: [place] [address] INT INP/OBS CARE 3/75MIN Patient Type New Medical Decision Making High Complexity Diagnoses Stroke-like symptoms R29.90 Hypertension I10 Alcohol use Z78.9 Noncompliance with medication regimen Z91.148
[2023-11-22] MEDS ORDERED: PHARMACIST DISCHARGE MED REC CONSULT PRN (14:23)
[2023-11-22 15:16] LABS: Troponin I High Sensitivity 79.7 pg/ml (0-20)
[2023-11-22 15:20] LABS: Thyroid Stimulating Hormone 3.748 uIu/ml (0.300-4.500)
--- NOTE | 2023-11-22 16:27 | Magnetic Resonance Report ---
MRI OF THE BRAIN WITHOUT CONTRAST CLINICAL HISTORY: Stroke-like symptoms, off balance, L facial droop COMPARISON STUDY: MRI of the brain October 13, 2017. Head CT and CTA of the head performed earlier to day. TECHNIQUE: Utilizing a 1.5 Celina magnet and dedicated coil, multiplanar, multiecho imaging of the bra in was performed without IV contrast. FINDINGS: There is a 1.3 cm T2 hyperintense focus within the right cerebral peduncle shown on coronal FLAIR image 13 of . This is hyperintense on the diffusion-weighted sequence. This appears slightly hyperintense on the ADC map. This is new since previous MRI. No additional foci of signal abnormalit y on diffusion-weighted sequence are present. Ventricular system is unremarkable. Basal cisterns are patent. Right temporal and right frontal lobe encephalomalacia is unchanged since MRI of October 13, 2017. Mild left temporal lobe encephalomalacia is also unchanged. No intracranial masses identified o n this unenhanced exam. Opacification of the right maxillary sinus is chronic. There is mild mucosal thickening of the left maxillary and ethmoid sinuses. IMPRESSION: 1. No acute intracranial findings. 2. 1.3 cm T2 hyperintense focus within the right cerebral peduncle, as described above. This is mildl y hyperintense on the diffusion-weighted sequence and slightly hyperintense on the ADC map. This may reflect wallerian degeneration. A subacute infarct could appear similar although is considered less l ikely. 3. Otherwise, no change in appearance of the brain with multifocal encephalomalacia, as described abo ve. ACT 112: Negative or not required by law. Electronically signed by: Celso Astudillo M.D. 11/22/2023 4:26 PM
--- NOTE | 2023-11-22 16:37 | Electrocardiogram Report ---
Test Reason : Blood Pressure : / mmHG Vent. Rate : 108 BPM Atrial Rate : 108 BPM P-R Int : 164 ms QRS Dur : 094 ms QT Int : 358 ms P-R-T Axes : 026 -12 052 degrees QTc Int : 479 ms Sinus tachycardia Left ventricular hypertrophy with repolarization abnormality Minor ST depression in Lateral leads Abnormal ECG When compared with ECG of 14-OCT-2017 06:55, Vent. rate has increased BY [address] now depressed in Lateral leads Confirmed by Conrad Prince ([id number]) on 11/22/2023 4:37:17 PM Referred By: REFERRED SELF Confirmed By:Conrad Prince
[2023-11-22] MEDS ORDERED: LABETALOL HCL IV 5 MG/ML 20ML IV PRN (16:57)
[2023-11-22] MEDS: LABETALOL HCL IV 5 MG/ML 20ML IV PRN (16:57)
[2023-11-22] MEDS: THIAMINE HCL 500 MG in SODIUM CHLORIDE 0.9% 50 ML IV SCH (16:58)
[2023-11-22] MEDS: lisinopril 10 MG TAB PO STA (18:17)
[2023-11-22] MEDS ORDERED: ENOXAPARIN INJ 40 MG/0.4 ML SYR SQ SCH (21:30)
[2023-11-22 22:40] LABS: Appearance Urine Clear (Clear); Bilirubin Urine Negative (Negative); Blood Urine Negative (Negative); Color Urine Yellow; Glucose Urine UA Negative (Negative); Ketones Urine Trace (Negative); Leukocyte Esterase Urine Negative (Negative); Nitrite Urine Negative (Negative); Protein Urine Negative (Negative); Specific Gravity Urine > 1.045 (1.000-1.030); Urobilinogen Urine Negative (Negative); pH Urine 5.5 (4.5-7.5)
[2023-11-22 23:15] LABS: Amphetamines+Metham, Urine Neg (Neg); Barbiturates, Urine Neg (Neg); Benzodiazepine, Urine Neg (Neg); Cocaine, Urine Neg (Neg); MDMA (Ecstacy), Urine Neg (Neg); Marijuana, Urine Neg (Neg); Methadone, Urine Neg (Neg); Opiate, Urine Neg (Neg); Phencyclidine, Urine Neg (Neg)
[2023-11-23 06:14] LABS: Basophils # (auto) 0.03 K/uL (0.00-0.20); Basophils % (auto) 0.3 %; Eosinophils # (auto) 0.23 K/uL (0.00-0.50); Eosinophils % (auto) 2.7 %; Hematocrit (blood only) 44.3 % (42.0-52.0); Hemoglobin 14.9 g/dl (14.0-18.0); Immature Granulocytes # (auto) 0.07 K/uL (0.01-0.20); Immature Granulocytes % (auto) 0.8 %; Lymphocytes # (auto) 2.15 K/uL (1.20-3.40); Lymphocytes % (auto) 24.8 %; Mean Corpuscular Hemoglobin 31.6 pg (25.0-34.0); Mean Corpuscular Hgb Conc 33.6 g/dL (32.0-36.0); Mean Corpuscular Volume 93.9 fL (80.0-100.0); Mean Platelet Volume 10.2 fL (9.4-12.4); Monocytes # (auto) 0.94 K/uL (0.11-0.59); Monocytes % (auto) 10.9 %; Neutrophils # (auto) 5.24 K/uL (1.40-6.50); Neutrophils % (auto) 60.5 %; Platelet Count 240 K/uL (130-400); RDW Coefficient of Variation 13.4 % (11.5-14.5); RDW Standard Deviation 45.7 fL (36.4-46.3); Red Blood Count 4.72 M/uL (4.70-6.10); White Blood Count 8.66 K/ul (4.8-10.8)
[2023-11-23 06:32] LABS: BUN Creatinine Ratio 14.3 (10-20); Calcium 8.7 mg/dl (8.6-10.3); Chol HDL Ratio 2.9 (0-5); Creatinine Clr Calc Pharmacy 75.4 ml/min; Est GFR (Non-African American) 71.6 ml/min; Potassium 3.9 mmol/L (3.5-5.1)
[2023-11-23 06:38] LABS: Troponin I High Sensitivity 61.2 pg/ml (0-20)
[2023-11-23] MEDS: lisinopril 10 MG TAB PO SCH (08:09)
[2023-11-23] MEDS: FOLIC ACID 1 MG in SYRINGE 9.8 ML IV SCH (08:09)
[2023-11-23] MEDS: ASPIRIN 81 MG ECTAB PO SCH (08:09)
[2023-11-23 08:13] LABS: Estimated Average Glucose 120 mg/dl; Hemoglobin A1C 5.8 % (4.5-5.6)
--- NOTE | 2023-11-23 08:59 | Neurology Consultation ---
Date of Consultation November 23, 2023 Assessment & Plan (1) Acute CVA (cerebrovascular accident): (2) Hypertensive emergency: (3) Occlusion of right posterior cerebral artery: (4) Double vision: (5) Confusion: (6) Dizziness: (7) B12 deficiency: (8) Chronic cerebral ischemia: Plan This is a complicated patient with a number of symptoms over the last 4 weeks consistent with a right cerebral peduncle stroke. MRI shows a subacute stroke in that area. He has balance difficulties, intermittent double vision, dizziness, decreased hearing, and some previous nausea and vomiting. On exam there is a probable left facial droop and a right painless, pupil sparing, partial 3rd nerve palsy. All of these symptoms are consistent with a cerebral peduncle stroke on the right. The etiology of the stroke is likely secondary to right posterior cerebral artery occlusion seen on CT angiography. This artery sends deep branches to the cerebral peduncle. This was likely ischemic in nature. He has severe hypertension which could have acutely led to his stroke. He has a longstanding history of hypertension and has not been compliant with medication. He has old chronic cerebral ischemia predating 2017 in the right temporal and frontal lobes as well as some other nonspecific small vessel ischemic changes seen on MRI. Hypertension could give him encephalopathy, but I believe he has more of a hearing deficit than an actual encephalopathy today. He has B12 deficiency which could add to cognitive defects and balance problems/ataxia (due to posterior column spinal cord effects) Finally, he has excessive alcohol usage which could give him direct cerebral and peripheral nervous system effects (as well as lead to vitamin deficiencies). Recommendations: 1. Control blood pressure as you are doing, slowly bringing the blood pressure down over time to ultimately end up at a mean arterial pressure of approximately 95-100. 2. Agree with 81 mg aspirin tablet daily 3. Replace B12 with subcu injections 4. Ideally, to help his nervous system he needs to discontinue all alcohol usage. 5. Physical and Occupational Therapy consults, and increase activity as able 6. Low his total cholesterol was technically normal at less than 200, low to medium dose statin is reasonable Overall, I spent a total of 100 minutes with this case including review of records, review of MRI and CT films, direct evaluation of the patient at bedside, report generation, and discussion of the case with the patient and RN at bedside as well as Dr. Houston, including differential diagnosis and treatment options. History of Present Illness Reason for Consultation: Patient is a 68-year-old, who I was asked to see at the request of Deshaun Priest PA-C, for neurologic evaluation regarding multiple symptoms and possible stroke Requesting Physician: Deshaun Priest PA-C Attending Physician: Micha Houston MD History of Present Illness This patient has a longstanding history of hypertension (since the late 80s) and was on lisinopril but apparently stopped medication for hypertension about a year ago because it made him feel lightheaded when he stood up. He does not have any history of heart disease, diabetes or previous stroke, that he is aware. He stopped smoking cigarettes in his 20s but has been chewing a can of snuff every 3 days ever since. In addition he will have about 30 beers a week. For the last month (early October) the patient believes that he has been a little bit confused, his balance has been off and he has fallen. In addition he has had some nausea and vomiting after eating food (most recently 2 weeks ago). His hearing has been suspect as well although has no history of hearing issue before this year. Family members have wondered about facial droop and has been having some double vision intermittently. This double vision is in any direction. He arrived to the emergency room November 21 at 09/24/2002 with a temperature 36.6, pulse 88 regular, respiratory rate 20, blood pressure 250/137, and O2 saturation 98%. On exam his right eye was noted to be "deviated laterally" and there was a possible left facial droop. He had some clumsiness/ataxia in his upper extremities bilaterally and his walking was poor. CBC and CHEM profile were unremarkable. Glucose was 109. Troponin was elevated at 76. Urinalysis and tox screen were negative. Chest x-ray was unremarkable. CT scan of the head was unremarkable. CT angiography of the head revealed a right posterior cerebral artery occlusion of indeterminate age. It was not present in a previous scan in 2018. CT angiography of the neck was unremarkable. MRI of the brain showed a hyperintense right cerebral peduncle lesion probably most consistent with subacute CVA. This was new from 2018. There was old small vessel ischemic disease including the right temporal and right frontal lobes which were the same as presented in the 2018 scan. I reviewed these films. Additional labs revealed a B12 of 153 and a TSH of 3.7. CBC and CHEM profile today were unremarkable. Hemoglobin A1c was 5.8 and triglycerides 126. Total cholesterol was 194. Despite treatment with medication his blood pressure still elevated and this morning was 205/101. The patient denies headaches, weakness in his arms or legs or pain. He rarely has some incontinence and this is only after he has urgency and cannot make it to the restroom in time. He feels his double vision is better. He has no swallowing problems and he is not nauseated. Echocardiogram showed mild left ventricular hypertrophy (consistent with hypertension) without any significant findings Allergies Allergy/AdvReac Type Severity Reaction Status Date / Time phenytoin Allergy Unknown unknown Verified 10/13/17 01:21 Home Medications Medication Instructions Recorded Confirmed Type No Known Home Medications 11/22/23 11/22/23 History Patient History Medical History (Updated 11/23/23 @ 09:23 by Tim Vallejo MD) Alcohol use Hypertension Surgical History S/P tonsillectomy Family History Mother , in her 70s of a stroke Stroke Father , age 82 of uncertain causes No problems noted. Social History Smoking Status: Former smoker Tobacco Type: Smokeless Tobacco (Dip or Chew) Age Started Using Tobacco: 19; Cigarettes Per Day: 1 can of chewing tobacco every 3 days since age 20; Smoking End Date: Quit cigarette smoking in his 20s; Second Hand Exposure: No; Do You Dip or Chew Tobacco: No; Tobacco Cessation Education Requested by Patient: No Hx Alcohol Use: Yes Alcohol type: beer Alcohol Intake Frequency: 4 or More x per/Week Alcohol Intake Frequency Comment: Averages 30 beers per week Hx Substance Use: No Preferred Language: Luxembourger Communication Ability: Effective Clay Maker Required: No Beliefs That Will Affect Care: None Current Living Situation: Spouse current occupational status: retired current occupation: Retired age 65 as a [employer]. Currently doing odd construction jobs Other Information That Helps Us Care for You: No Feels Safe at Home: Yes Safety Concerns: Feels Safe At This Time Assistive Devices: None Review of Systems Constitutional: no fever, no fatigue and no weakness Eyes: + diplopia; no eye pain and no worsening vision Ear, Nose, Mouth, Throat: + hearing loss and + dizziness; no ear p ain, no tinnitus, no snoring, no hoarseness and no dysphagia Respiratory: no cough and no dyspnea Cardiovascular: no chest pain, no palpitations and no lightheadedness Gastrointestinal: no abdominal pain, no nausea and no vomiting Musculoskeletal: no back pain, no neck pain, no radicular pain, no joint pain and no myalgia Integumentary: no rash and no lesions Neurologic: + gait abnormality and + confusion; no l ocalized weakness, no generalized weakness, no tingling, no numbness, no tremor(s), no abnormal movements, no headache(s), no abnormal speech and no memory loss Psychiatric: no depression, no irritability, no anxiety, no difficulty concentrating, no confusion and no hallucinations Endocrine: no fatigue and no flushing Hematologic / Lymphatic: no easy bleeding and no easy bruising Allergy / Immunological: no urticaria and no problem reported Exam (Neuro) Physical Exam: The patient is right-handed. The patient is awake, alert, and attentive. Speech is normal without any aphasia or dysarthria. Mentation and thought processes are intact, with full orientation and normal fund of knowledge. Mood and affect are normal and appropriate. Appearance and grooming are normal. Short and long-term memory are reasonable to conversation. At times he tells me he can understand but it seems clear to me that he does not hear me well and when I repeat myself more distinct ly and louder he hears and understands perfectly well. Pupils are 4 mm bilaterally and reactive to light. With left gaze, the right eye does not fully adduct. With right gaze, the right eye moves fully but has a few beats of nystagmus. Up-and-down gaze seem reasonable. Left eye moves well. Visual acuity and visual vcik seem normal grossly to confrontation. There are no deficits to sensation in the face in all 3 distributions of the fifth cranial nerve bilaterally. Corneal reflexes are positive bilaterally. There seems to be slight weakness/asymmetry of the left lower face compared to the right. Hearing seems decreased bilaterally. Palate moves well without asymmetry. There is normal sternocleidomastoid and trapezius strength bilaterally. Tongue is midline with good strength shon aterally. Neck has a full range of motion without discomfort. There are no cervical bruits bilaterally. There are no cranial or ocular bruits. Heart is without murmur. There is a regular rhythm and rate. Cervical, thoracic, and lumbar spine are nontender to palpation. The patient can stand on his own but gets slightly lightheaded/dizzy when he first stands up. He feels off balance and he crosses over his feet when he turns. In a straight line he is fairly stable and narrow-based. Stance with eyes open and feet together is poor and he tends to go backwards. With outstretched arms there is no drift. There are no resting, postural, or action tremors. There is no ataxia with finger to nose testing. There is good facility in the hands. No other abnormal involuntary movements are noted. Motor strength is 5/5 diffusely in the arms bilaterally including deltoids, biceps, triceps, brachioradialis, wrist flexors and extensors, construction specialist, and intrinsic hand muscles. Motor strength is 5/5 diffusely in the legs bilaterally including hip flexors, quadriceps, hamstrings, gastrocnemius, tibialis anterior, tibialis posterior, and Peroneii muscles bilaterally. Toe extensors are normal and there is good bulk in the extensor digitorum brevis muscles bilaterally. The limbs have good tone without rigidity or spasticity. There is no atrophy noted in the muscles. Muscle bulk is normal, there is no tenderness to palpation, no myotonia to percussion, and no fasciculations seen. Sensory examination is intact to touch and pin throughout all 4 limbs diffusely. Reflexes are 2/4 in the biceps, triceps, brachioradialis, quadriceps, and Achilles tendons bilaterally. Toes are downgoing with plantar stimulation bilaterally. Peripheral pulses are present and of normal quality distally in all 4 limbs. There is no peripheral edema noted in the limbs. Results & Data Vital Signs (Past 12 Hours) Vital Signs Temp Pulse Pulse Resp BP Pulse Ox O2 Del Method 11/23/23 07:44 60 11/23/23 07:04 36.6 C 58 L 18 205/101 H 97 Room Air 11/23/23 03:05 36.8 C 63 17 189/96 H 96 Room Air 11/22/23 22:21 36.8 C 61 18 200/97 H 95 Room Air 11/22/23 22:00 59 L PG Care Time/CCT Total # of Minutes Spent Total Time Spent with Patient: Total time spent is greater than 50% in coordination of care (as documented) at patient's floor/unit and/or counseling patient: Coding Level of Care Code 67853 INT INP/OBS CARE 3/75MIN Diagnoses Acute CVA (cerebrovascular accident) I63.9 Hypertensive emergency I16.1 Occlusion of right posterior cerebral artery I66.21 Double vision H53.2 Confusion R41.0 Dizziness R42 B12 deficiency E53.8 Chronic cerebral ischemia I67.82 Time Spent (min) 100
[2023-11-23] MEDS: hydrALAZINE HCL 25 MG TAB PO STA (09:16)
[2023-11-23] MEDS: hydrALAZINE HCL 25 MG TAB PO SCH (09:16)
[2023-11-23] MEDS: ENOXAPARIN INJ 40 MG/0.4 ML SYR SQ SCH (09:17)
--- NOTE | 2023-11-23 09:25 | XCELERA ---
[id number]
--- NOTE | 2023-11-23 13:10 | Hospitalist Progress Note ---
Date of Service November 23, 2023 Assessment & Plan (1) Stroke-like symptoms: Plan: It appears he has a subacute right cerebellar CVA. The right posterior cerebellar artery is occluded which is the likely cause. Appreciate neurology consultation and recommendations. Continue OT, PT, and speech evaluations. He is likely a candidate for IPR at the time of discharge. (2) Hypertension: Plan: Hydralazine has been started for blood pressure control. This replaces lisinopril. Cardiac echo reveals mild left ventricular hypertrophy as expected with uncontrolled hypertension (3) Alcohol use: Plan: Considerable beer intake daily. No history of DTs. He is now on scheduled doses of Librium which will gradually be tapered off. Folate and thiamine replacement ordered. Plan Hopefully he will agree to IPR placement at the time of discharge for continued OT and PT before he goes home Admission and Anticipated Discharge Date Admission Date: November 22, 2023 Subjective Alert and oriented. is at the bedside. Case discussed with neurology, Dr. Vallejo. It appears he recently suffered a right cerebellar CVA. This would be subacute and causing his current symptoms. The right posterior cerebellar artery is occluded and this may have been recent. Hydralazine started for blood pressure control. Lisinopril discontinued. He is on scheduled dosing of Librium 10 mg 3 times a day to prevent any alcohol withdrawal symptoms. Will continue folate and thiamine replacement for now. OT, PT, speech evaluations requested. He probably is a candidate for IPR at [facility] at the time of discharge before he can return home. Cardiac echo reveals mild left ventricular hypertrophy as expected. Normal ejection fraction with no regional wall motion abnormalities. Diastolic dysfunction is evident as expected. Mild AI and mild MR noted Review of Systems 2 Review of Systems: Constitutional-no fever or chills ENT-no blurred vision, no double vision, no epistaxis, no sore throat Respiratory-no cough, no wheezing, no shortness of breath Cardiac-no palpitations, no chest pain, no syncope GI-no nausea, vomiting, diarrhea, melena, hematochezia -no urinary retention, no urinary incontinence, no dysuria, no hematuria Musculoskeletal-no joint pain, no muscle tenderness Skin-no bruising, no rashes, no pruritus Neuro-imbalance. No paresthesia, no weakness Psych-no depression, no anxiety Physical Exam 2 Physical Exam: General-alert and oriented x3, no fever, no chills HEENT-head atraumatic and normocephalic, pupils equal and reactive to light, extraocular muscles intact Neck-no lymphadenopathy or thyromegaly, trachea midline Chest-clear to auscultation. No rales, wheezing or rhonchi Cardiac-regular rate and rhythm, normal S1 and S2 Abdomen-normal bowel sounds, nontender, no hepatosplenomegaly Extremities-no cyanosis, clubbing, or edema Neuro-cranial nerves II through XII intact, motor and sensory function within normal limits, strength symmetrical, no focal motor deficits. Ataxic gait Psych-normal affect, normal mood Results & Data Results & Data Vital Signs (Past 12 Hours) Vital Signs Temp Pulse Pulse Resp BP Pulse Ox O2 Del Method 11/23/23 11:22 36.6 C 71 18 184/87 H 95 Room Air 11/23/23 10:15 65 175/89 H 11/23/23 07:44 60 11/23/23 07:04 36.6 C 58 L 18 205/101 H 97 Room Air 11/23/23 03:05 36.8 C 63 17 189/96 H 96 Room Air Laboratory Results 11/23/23 05:30 11/23/23 05:30 PG Care Time/CCT Total # of Minutes Spent Total Time Spent with Patient: Total time spent is greater than 50% in coordination of care (as documented) at patient's floor/unit and/or counseling patient: Coding Level of Care Code 01238 SUB INP/OBS CARE 3/50MIN Diagnoses Stroke-like symptoms R29.90 Hypertension I10 Alcohol use Z78.9
[2023-11-23] MEDS: hydrALAZINE HCL 20 MG/ML VIAL IV PRN (15:47)
[2023-11-23] MEDS: LORazepam 1 MG in SYRINGE 0.5 ML IV PRN (23:57)
[2023-11-24 04:57] LABS: Base Excess VBG 1.7 mEq/L; HCO3 VBG 27 mmol/L; Oxygen Saturation VBG 64.1 %; PCO2 VBG 42 mmHg (38-50); PO2 VBG 35 mmHg; pH VBG 7.41 (7.36-7.41)
[2023-11-24 05:07] LABS: Basophils # (auto) 0.02 K/uL (0.00-0.20); Basophils % (auto) 0.2 %; Eosinophils # (auto) 0.22 K/uL (0.00-0.50); Eosinophils % (auto) 2.4 %; Hematocrit (blood only) 47.7 % (42.0-52.0); Hemoglobin 15.8 g/dl (14.0-18.0); Immature Granulocytes # (auto) 0.05 K/uL (0.01-0.20); Immature Granulocytes % (auto) 0.5 %; Lymphocytes % (auto) 21.6 %; Mean Corpuscular Hemoglobin 31.3 pg (25.0-34.0); Mean Corpuscular Hgb Conc 33.1 g/dL (32.0-36.0); Mean Corpuscular Volume 94.6 fL (80.0-100.0); Mean Platelet Volume 10.1 fL (9.4-12.4); Monocytes # (auto) 1.05 K/uL (0.11-0.59); Monocytes % (auto) 11.4 %; Neutrophils # (auto) 5.91 K/uL (1.40-6.50); Neutrophils % (auto) 63.9 %; Platelet Count 262 K/uL (130-400); RDW Coefficient of Variation 13.6 % (11.5-14.5); Red Blood Count 5.04 M/uL (4.70-6.10); White Blood Count 9.25 K/ul (4.8-10.8)
[2023-11-24 05:22] LABS: Albumin Globulin Ratio 1.4 (0.9-2); Albumin Level 4.1 gm/dl (3.4-5.0); BUN Creatinine Ratio 14.4 (10-20); Bilirubin,Total 0.9 mg/dl (0.2-1.0); Calcium 8.9 mg/dl (8.6-10.3); Creatinine Clr Calc Pharmacy 81.5 ml/min; Est GFR (African American) 91.3 ml/min; Est GFR (Non-African American) 78.8 ml/min; Globulin 2.9 gm/dl (2.5-4.0); Magnesium 2.1 mg/dl (1.7-2.4)
[2023-11-24] MEDS ORDERED: LORazepam 3 MG in SYRINGE 1.5 ML IV PRN (05:26)
[2023-11-24] MEDS ORDERED: Ativan IV Alcohol Withdrawal--Active Protocol IV PRN (05:26)
--- NOTE | 2023-11-24 05:27 | CT Scan Report ---
Exam(s): CT HEAD Without Contrast EXAM: CT Head Without Intravenous Contrast CLINICAL HISTORY: Reason for exam: Change in Mental Status. TECHNIQUE: Axial computed tomography images of the head/brain without intravenous contrast. CTDI is 36.79 mGy and DLP is 625.8 mGy-cm. Automated exposure control was utilized for the study. A dose lowering technique was utilized adhering to the principles of ALARA. COMPARISON: 11/22/23 FINDINGS: Brain: Right temporal encephalomalacia characteristic for old right MCA distribution infarct, unchanged. Deep and periventricular white matter small vessel ischemic changes redemonstrated. No CT evidence for early or acute ischemia. No hemorrhage. No intracranial mass. Ventricles: Unremarkable. No ventriculomegaly. Bones/joints: Unremarkable. No acute fracture. Soft tissues: Unremarkable. Sinuses: Complete opacification of right maxillary sinus characteristic for chronic sinusitis. Remaining paranasal sinuses are clear. Mastoid air cells: Unremarkable as visualized. No mastoid effusion. IMPRESSION: 1. Complete opacification of right maxillary sinus characteristic for chronic sinusitis. Remaining paranasal sinuses are clear. 2. Right temporal encephalomalacia characteristic for old right MCA distribution infarct, unchanged. 3. Deep and periventricular white matter small vessel ischemic changes redemonstrated. No CT evidence for early or acute ischemia. Electronically signed by: Franklin Umanzor MD 11/24/23 05:26 AM
--- NOTE | 2023-11-24 05:34 | Communication Note ---
Notified by nursing of increased confusion, issues with gait/balance. Saw pt at bedside AAOx3, neurologic exam non focal, strength 5/5 UE and LE B/L, CN II-XII intact. Given acute change, plan for repeat Head CT, repeat labs, UA. Was given the 1 dose of Ativan ordered for AWSS of 8 as indicated with AWSS at risk protocol, will re-order AWSS active protocol. Date of Service: November 24, 2023
[2023-11-24] MEDS: LORazepam 2 MG in SYRINGE 1 ML IV PRN (05:52)
[2023-11-24] MEDS: FOLIC ACID 1 MG TAB PO SCH (09:41)
[2023-11-24] MEDS: hydrALAZINE TAB 50 MG TAB PO SCH (09:41)
[2023-11-24] MEDS: THIAMINE HCL 100 MG TAB PO SCH (09:41)
--- NOTE | 2023-11-24 12:13 | Hospitalist Progress Note ---
Date of Service November 24, 2023 Assessment & Plan (1) Delirium tremens: Plan: Supportive care. SONALI S protocol. Continue scheduled Librium dosage. IV Ativan as needed (2) Stroke-like symptoms: Plan: It appears he has a subacute right cerebellar CVA. The right posterior cerebellar artery is occluded which is the likely cause. Appreciate neurology consultation and recommendations. Continue OT, PT, and speech evaluations. He is likely a candidate for IPR at the time of discharge. (3) Hypertension: Plan: Hydralazine has been started for blood pressure control. This replaces lisinopril. Cardiac echo reveals mild left ventricular hypertrophy as expected with uncontrolled hypertension (4) Alcohol use: Plan: Considerable beer intake daily. No prior history of DTs. Continue AWSS protocol. Folate and thiamine replacement ordered. Plan Hopefully he will agree to IPR placement at the time of discharge for continued OT and PT before he goes home. Hopeful placement later this week Admission and Anticipated Discharge Date Admission Date: November 22, 2023 Subjective He is sleeping now after receiving parenteral Ativan for onset of DTs related to alcohol withdraw. is at the bedside. Giving him beer is not an option since he probably will be going to [facility] and it will not happen there and he will develop DTs again and be sent right back here. So, we will keep him here and detox him from the alcohol and then hopefully send him to [facility] for rehab. Review of Systems 2 Review of Systems: Constitutional-no fever or chills ENT-no blurred vision, no double vision, no epistaxis, no sore throat Respiratory-no cough, no wheezing, no shortness of breath Cardiac-no palpitations, no chest pain, no syncope GI-no nausea, vomiting, diarrhea, melena, hematochezia -no urinary retention, no urinary incontinence, no dysuria, no hematuria Musculoskeletal-no joint pain, no muscle tenderness Skin-no bruising, no rashes, no pruritus Neuro-imbalance. He has developed DTs from alcohol withdrawal Psych-no depression, no anxiety Physical Exam 2 Physical Exam: General-sleeping after parenteral Ativan administered earlier today. No fever HEENT-head atraumatic and normocephalic Neck-no lymphadenopathy or thyromegaly, trachea midline Chest-clear to auscultation anteriorly. No rales, wheezing or rhonchi Cardiac-regular rate and rhythm, normal S1 and S2 Abdomen-normal bowel sounds no hepatosplenomegaly Extremities-no cyanosis, clubbing, or edema Neuro-somnolent. Cannot assess Psych-somnolent. Cannot assess Results & Data Results & Data Vital Signs (Past 12 Hours) Vital Signs Temp Pulse Pulse Resp BP Pulse Ox O2 Del Method 11/24/23 10:32 36.5 C 64 20 169/90 H 95 Room Air 11/24/23 08:44 36.7 C 59 L 18 158/77 H 11/24/23 07:42 65 11/24/23 06:58 36.4 C L 72 20 178/91 H 94 Room Air 11/24/23 04:00 36.6 C 71 17 185/100 H 94 Room Air Laboratory Results 11/24/23 04:48 11/24/23 04:48 PG Care Time/CCT Total # of Minutes Spent Total Time Spent with Patient: Total time spent is greater than 50% in coordination of care (as documented) at patient's floor/unit and/or counseling patient: Coding Level of Care Code 94545 SUB INP/OBS CARE 3/50MIN Diagnoses Delirium tremens F10.931 Stroke-like symptoms R29.90 Hypertension I10 Alcohol use Z78.9
[2023-11-24] MEDS: LORazepam 1 MG in SYRINGE 0.5 ML IV PRN (12:46)
[2023-11-24] MEDS: NICOTINE 14 MG/24 HR PATCH TD SCH (13:32)
[2023-11-24 22:01] LABS: Appearance Urine Clear (Clear); Blood Urine Negative (Negative); Color Urine Dark Yellow; Glucose Urine UA Negative (Negative); Ketones Urine 1+ (Negative); Leukocyte Esterase Urine Negative (Negative); Nitrite Urine Negative (Negative); Protein Urine Negative (Negative); Specific Gravity Urine 1.015 (1.000-1.030); Urobilinogen Urine Negative (Negative); pH Urine 5.5 (4.5-7.5)
[2023-11-24 22:11] LABS: Bilirubin Urine 1+ (Negative)
[2023-11-25] MEDS: ACETAMINOPHEN 325 MG TAB PO PRN (03:39)
[2023-11-25 06:12] LABS: Basophils # (auto) 0.03 K/uL (0.00-0.20); Basophils % (auto) 0.2 %; Eosinophils # (auto) 0.13 K/uL (0.00-0.50); Hematocrit (blood only) 44.4 % (42.0-52.0); Hemoglobin 14.9 g/dl (14.0-18.0); Immature Granulocytes % (auto) 0.8 %; Lymphocytes # (auto) 1.47 K/uL (1.20-3.40); Lymphocytes % (auto) 11.5 %; Mean Corpuscular Hemoglobin 31.9 pg (25.0-34.0); Mean Corpuscular Hgb Conc 33.6 g/dL (32.0-36.0); Mean Corpuscular Volume 95.1 fL (80.0-100.0); Mean Platelet Volume 10.3 fL (9.4-12.4); Monocytes # (auto) 0.94 K/uL (0.11-0.59); Monocytes % (auto) 7.4 %; Neutrophils # (auto) 10.08 K/uL (1.40-6.50); Neutrophils % (auto) 79.1 %; Platelet Count 231 K/uL (130-400); RDW Coefficient of Variation 13.7 % (11.5-14.5); RDW Standard Deviation 47.8 fL (36.4-46.3); Red Blood Count 4.67 M/uL (4.70-6.10); White Blood Count 12.75 K/ul (4.8-10.8)
--- NOTE | 2023-11-25 10:30 | Neurology Progress Note ---
Date of Service November 25, 2023 Assessment & Plan (1) Acute CVA (cerebrovascular accident): (2) Hypertensive emergency: (3) Occlusion of right posterior cerebral artery: (4) Double vision: (5) Confusion: (6) Dizziness: (7) B12 deficiency: (8) Chronic cerebral ischemia: Plan This is a complicated patient with a number of symptoms over the last 4 weeks consistent with a right cerebral peduncle stroke. MRI shows a subacute stroke in that area. He had balance difficulties, intermittent double vision, dizziness, decreased hearing, and some previous nausea and vomiting. On exam today there is a left facial droop and a right painless, pupil sparing, partial 3rd nerve palsy. All of these symptoms are consistent with a cerebral peduncle stroke on the right. The etiology of the stroke is likely secondary to right posterior cerebral artery occlusion seen on CT angiography. This artery sends deep branches to the cerebral peduncle. This was likely ischemic in nature. He had severe hypertension on admission which could have acutely led to his stroke. He has a longstanding history of hypertension and has not been compliant with medication. He has old chronic cerebral ischemia predating 2017 in the right temporal and frontal lobes as well as some other nonspecific small vessel ischemic changes seen on MRI. Hypertension could give him encephalopathy, but I believe he had more of a hearing deficit November 22 than an actual encephalopathy. Today he has some co nfusion/sleepiness which is likely secondary to medication effect given in an effort to prevent alcohol withdrawal symptoms (Librium) He has B12 deficiency which could add to cognitive defects and balance problems/ataxia (due to posterior column spinal cord effects) Finally, he has excessive alcohol usage which could give him direct cerebral and peripheral nervous system effects (as well as lead to vitamin deficiencies). Recommendations: 1. Control blood pressure as you are doing, slowly bringing the blood pressure down over time to ultimately end up at a mean arterial pressure of approximately 95-100. 2. Continue 81 mg aspirin tablet daily 3. Replace B12 with subcu injections 4. Ideally, to help his nervous system he needs to discontinue all alcohol usage. He is being treated for alcohol withdrawal. 5. Physical and Occupational Therapy consults, and increase activity as able 6. Low his total cholesterol was technically normal at less than 200, low to medium dose statin is reasonable 7. Consider repeat MRI of the brain if the patient's neurologic status deteriorates/changes Overall, I spent a total of 50 minutes with this case including review of records, review of MRI and CT films, direct evaluation of the patient at bedside, report generation, and discussion of the case with the patient, , and Dr. Houston at bedsidel, including differential diagnosis and treatment options. Admission and Anticipated Discharge Date Admission Date: November 22, 2023 Subjective Patient has been confused. He is not in any pain or having headaches. Blood pressure was 152/92 and he is afebrile. CBC was unremarkable. CT scan of the head November 23 showed opacification of the right maxillary sinus chronic pain due to old right MCA infarct in the right temporal lobe which was unchanged. There was small vessel ischemic changes, and nothing new Results & Data Vital Signs (Past 12 Hours) Vital Signs Temp Pulse Resp BP Pulse Ox O2 Del Method 11/25/23 08:15 36.8 C 111 H 20 154/92 H 97 Room Air 11/25/23 07:15 36.7 C 75 20 144/83 H 94 Room Air 11/25/23 05:23 37 C 11/25/23 03:27 38 C H 96 H 22 150/90 H 91 Room Air 11/24/23 22:56 37.1 C 75 24 168/82 H 94 Room Air Exam (Neuro) Physical Exam: He is awake and alert. Speech is slightly slurred but he is mildly confused. He follows one-step commands fairly well. He knew his 's name his name and where he was. Extraocular eye muscles revealed a decreased ability to fully adduct the right eye when looking left. It was slightly improved compared to November 22. There was no nystagmus. There is mild facial asymmetry on the left tongue was midline. There is mild drift and weakness of the left upper extremity compared to the right which is normal. The left leg was of normal strength. The left arm had 4/5 strength compared to the right which was 5/5. The right leg was 5/5. There was no ataxia or tremor. PG Care Time/CCT Total # of Minutes Spent Total Time Spent with Patient: Total time spent is greater than 50% in coordination of care (as documented) at patient's floor/unit and/or counseling patient: Coding Level of Care Code 81799 SUB INP/OBS CARE 3/50MIN Diagnoses Acute CVA (cerebrovascular accident) I63.9 Hypertensive emergency I16.1 Occlusion of right posterior cerebral artery I66.21 Double vision H53.2 Confusion R41.0 Dizziness R42 B12 deficiency E53.8 Chronic cerebral ischemia I67.82 Time Spent (min) 50
--- NOTE | 2023-11-25 14:25 | Hospitalist Progress Note ---
Date of Service November 25, 2023 Assessment & Plan (1) Delirium tremens: Plan: DTs have resolved. Continue treatment for alcohol withdrawal. Supportive care. AWSS protocol. Continue scheduled Librium dosage. IV Ativan as needed (2) Stroke-like symptoms: Plan: It appears he has a subacute right cerebral peduncle CVA. The right posterior cerebellar artery is occluded which is the likely cause. Appreciate neurology consultation and recommendations. Continue OT, PT, and speech evaluations. He is a candidate for IPR at the time of discharge. Continue aspirin therapy. Statin therapy has been started (3) Hypertension: Plan: Hydralazine has been started for blood pressure control. This replaces lisinopril. Cardiac echo reveals mild left ventricular hypertrophy as expected with uncontrolled hypertension (4) Alcohol use: Plan: Considerable beer intake daily. No prior history of DTs. Continue AWSS protocol. Folate and thiamine replacement ordered. (5) B12 deficiency: Plan: IM replacement ordered. Eventual switch to oral supplementation Plan IPR at discharge. Hopefully later this week Admission and Anticipated Discharge Date Admission Date: November 22, 2023 Subjective Awake but somewhat somnolent from the Librium. Neurology at the bedside at the time of my rounds. He has a mild left facial droop and right partial 3rd nerve palsy. Atorvastatin 40 mg daily has been started. He continues on hydralazine. Vitamin B-12 injections intramuscularly daily have been ordered. He will need IPR rehab at the time of discharge. Hopefully later this week Review of Systems 2 Review of Systems: Constitutional-no fever or chills ENT-no blurred vision, no double vision, no epistaxis, no sore throat Respiratory-no cough, no wheezing, no shortness of breath Cardiac-no palpitations, no chest pain, no syncope GI-no nausea, vomiting, diarrhea, melena, hematochezia -no urinary retention, no urinary incontinence, no dysuria, no hematuria Musculoskeletal-no joint pain, no muscle tenderness Skin-no bruising, no rashes, no pruritus Neuro-imbalance/ataxia, left facial droop. Partial right 3rd nerve palsy. No overt DTs at this time Psych-no depression, no anxiety Physical Exam 2 Physical Exam: General-awake but mildly lethargic from medications. No fever HEENT-head atraumatic and normocephalic Neck-no lymphadenopathy or thyromegaly, trachea midline Chest-clear to auscultation anteriorly. No rales, wheezing or rhonchi Cardiac-regular rate and rhythm, normal S1 and S2 Abdomen-normal bowel sounds no hepatosplenomegaly Extremities-no cyanosis, clubbing, or edema Neuro-mild left facial droop. Partial right 3rd nerve palsy. Psych-he does not appear depressed. No active DTs Results & Data Results & Data Vital Signs (Past 12 Hours) Vital Signs Temp Pulse Resp BP Pulse Ox O2 Del Method 11/25/23 13:00 36.6 C 74 18 96 Room Air 11/25/23 08:15 36.8 C 111 H 20 154/92 H 97 Room Air 11/25/23 07:15 36.7 C 75 20 144/83 H 94 Room Air 11/25/23 05:23 37 C 11/25/23 03:27 38 C H 96 H 22 150/90 H 91 Room Air Laboratory Results 11/25/23 05:25 11/24/23 04:48 PG Care Time/CCT Total # of Minutes Spent Total Time Spent with Patient: Total time spent is greater than 50% in coordination of care (as documented) at patient's floor/unit and/or counseling patient: Coding Level of Care Code 88567 SUB INP/OBS CARE 3/50MIN Diagnoses Delirium tremens F10.931 Stroke-like symptoms R29.90 Hypertension I10 Alcohol use Z78.9 B12 deficiency E53.8
--- NOTE | 2023-11-25 14:43 | Pharmacy Report ---
- Date of Service November 25, 2023 - Pharmacy CVA/TIA Medication Review Medications to Prevent Stroke handout has been added to the patients discharge packet. Antiplatelet(s) * aspirin 81 mg PO daily Cholesterol * High intensity statin: atorvastatin 40 mg daily DVT Prophylaxis * Enoxaparin SQ Therapeutic Anticoagulation * No history of Afib/Aflutter noted Type 2 Diabetes * Patient does not have T2DM
[2023-11-25] MEDS: ATORVASTATIN 40 MG TAB PO SCH (15:28)
[2023-11-25] MEDS: CYANOCOBALAMIN 1000 MCG/ML VIAL IM SCH (15:29)
[2023-11-26 06:06] LABS: Basophils # (auto) 0.02 K/uL (0.00-0.20); Basophils % (auto) 0.2 %; Eosinophils # (auto) 0.28 K/uL (0.00-0.50); Eosinophils % (auto) 2.7 %; Hematocrit (blood only) 43.8 % (42.0-52.0); Hemoglobin 14.8 g/dl (14.0-18.0); Immature Granulocytes # (auto) 0.05 K/uL (0.01-0.20); Immature Granulocytes % (auto) 0.5 %; Lymphocytes # (auto) 2.06 K/uL (1.20-3.40); Lymphocytes % (auto) 19.6 %; Mean Corpuscular Hemoglobin 31.8 pg (25.0-34.0); Mean Corpuscular Hgb Conc 33.8 g/dL (32.0-36.0); Mean Platelet Volume 10.4 fL (9.4-12.4); Monocytes # (auto) 0.99 K/uL (0.11-0.59); Monocytes % (auto) 9.4 %; Neutrophils # (auto) 7.13 K/uL (1.40-6.50); Neutrophils % (auto) 67.6 %; Platelet Count 223 K/uL (130-400); RDW Coefficient of Variation 13.7 % (11.5-14.5); RDW Standard Deviation 47.4 fL (36.4-46.3); Red Blood Count 4.66 M/uL (4.70-6.10); White Blood Count 10.53 K/ul (4.8-10.8)
[2023-11-26 06:27] LABS: BUN Creatinine Ratio 17.7 (10-20); Calcium 8.4 mg/dl (8.6-10.3); Creatinine Clr Calc Pharmacy 75.8 ml/min; Est GFR (African American) 92.4 ml/min; Est GFR (Non-African American) 79.8 ml/min; Potassium 3.8 mmol/L (3.5-5.1)
--- NOTE | 2023-11-26 14:30 | Hospitalist Progress Note ---
Date of Service November 26, 2023 Assessment & Plan (1) Delirium tremens: Plan: DTs have resolved. Continue treatment for alcohol withdrawal. Supportive care. AWSS protocol. Librium down titrated today, November 25. IV Ativan as needed (2) Stroke-like symptoms: Plan: It appears he has a subacute right cerebral peduncle CVA. The right posterior cerebellar artery is occluded which is the likely cause. Appreciate neurology consultation and recommendations. Continue OT, PT, and speech evaluations. He is a candidate for IPR at the time of discharge. Continue aspirin therapy. Statin therapy has been started (3) Hypertension: Plan: Hydralazine has been started for blood pressure control. This replaces lisinopril. Blood pressure is much improved. Cardiac echo reveals mild left ventricular hypertrophy as expected with uncontrolled hypertension (4) Alcohol use: Plan: Considerable beer intake daily. No prior history of DTs. Continue AWSS protocol. Folate and thiamine replacement ordered. (5) B12 deficiency: Plan: IM replacement ordered. Eventual switch to oral supplementation Plan IPR at discharge. Hopefully within the next day or 2 at which time he will be medically stable for discharge Admission and Anticipated Discharge Date Admission Date: November 22, 2023 Subjective Alert and oriented today. is at the bedside. He is aware that Librium will be tapered down today. Blood pressure is improved with addition of hydralazine. Awaiting eventual placement at [facility] IPR. Hopefully within the next day or 2 Review of Systems 2 Review of Systems: Constitutional-no fever or chills ENT-no blurred vision, no double vision, no epistaxis, no sore throat Respiratory-no cough, no wheezing, no shortness of breath Cardiac-no palpitations, no chest pain, no syncope GI-no nausea, vomiting, diarrhea, melena, hematochezia -no urinary retention, no urinary incontinence, no dysuria, no hematuria Musculoskeletal-no joint pain, no muscle tenderness Skin-no bruising, no rashes, no pruritus Neuro-imbalance/ataxia, left facial droop. Partial right 3rd nerve palsy. No overt DTs at this time Psych-no depression, no anxiety Physical Exam 2 Physical Exam: General-awake . Oriented to name and place. Alert. No fever HEENT-head atraumatic and normocephalic Neck-no lymphadenopathy or thyromegaly, trachea midline Chest-clear to auscultation anteriorly. No rales, wheezing or rhonchi Cardiac-regular rate and rhythm, normal S1 and S2 Abdomen-normal bowel sounds no hepatosplenomegaly Extremities-no cyanosis, clubbing, or edema Neuro-mild left facial droop. Partial right 3rd nerve palsy. Psych-he does not appear depressed. No active DTs Results & Data Results & Data Vital Signs (Past 12 Hours) Vital Signs Temp Pulse Pulse Resp BP Pulse Ox O2 Del Method 11/26/23 11:57 36.8 C 70 18 147/69 H Room Air 11/26/23 07:45 65 11/26/23 07:10 36.7 C 66 16 159/74 H 98 Room Air 11/26/23 03:34 36.9 C 62 18 162/79 H 97 Room Air Laboratory Results 11/26/23 05:18 11/26/23 05:18 PG Care Time/CCT Total # of Minutes Spent Total Time Spent with Patient: Total time spent is greater than 50% in coordination of care (as documented) at patient's floor/unit and/or counseling patient: Coding Level of Care Code 26771 SUB INP/OBS CARE 3/50MIN Diagnoses Delirium tremens F10.931 Stroke-like symptoms R29.90 Hypertension I10 Alcohol use Z78.9 B12 deficiency E53.8
[2023-11-27 06:41] LABS: BUN Creatinine Ratio 20.4 (10-20); Calcium 8.8 mg/dl (8.6-10.3); Creatinine Clr Calc Pharmacy 74.2 ml/min; Est GFR (African American) 90.2 ml/min; Est GFR (Non-African American) 77.8 ml/min; Potassium 3.9 mmol/L (3.5-5.1)
[2023-11-27 06:42] LABS: Basophils # (auto) 0.02 K/uL (0.00-0.20); Basophils % (auto) 0.2 %; Eosinophils # (auto) 0.38 K/uL (0.00-0.50); Eosinophils % (auto) 4.1 %; Hematocrit (blood only) 44.2 % (42.0-52.0); Hemoglobin 14.9 g/dl (14.0-18.0); Immature Granulocytes # (auto) 0.09 K/uL (0.01-0.20); Lymphocytes # (auto) 2.13 K/uL (1.20-3.40); Lymphocytes % (auto) 23.1 %; Mean Corpuscular Hemoglobin 31.5 pg (25.0-34.0); Mean Corpuscular Hgb Conc 33.7 g/dL (32.0-36.0); Mean Corpuscular Volume 93.4 fL (80.0-100.0); Mean Platelet Volume 10.7 fL (9.4-12.4); Monocytes # (auto) 1.01 K/uL (0.11-0.59); Neutrophils # (auto) 5.58 K/uL (1.40-6.50); Neutrophils % (auto) 60.6 %; Platelet Count 250 K/uL (130-400); RDW Coefficient of Variation 13.5 % (11.5-14.5); Red Blood Count 4.73 M/uL (4.70-6.10); White Blood Count 9.21 K/ul (4.8-10.8)
[2023-11-27] MEDS: ONDANSETRON INJ 2 MG/ML 2 ML VIAL IV PRN (14:42)
--- NOTE | 2023-11-27 15:14 | Hospitalist Progress Note ---
Date of Service November 27, 2023 Assessment & Plan (1) Delirium tremens: Plan: DTs have resolved. Continue treatment for alcohol withdrawal. Supportive care. AWSS protocol. Librium down titrated to twice daily dosing on November 25. IV Ativan as needed (2) Stroke-like symptoms: Plan: It appears he has a subacute right cerebral peduncle CVA. 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 Appreciate neurology consultation and recommendations. Continue OT, PT, and speech evaluations. He is a candidate for IPR at the time of discharge. Continue aspirin therapy. Statin therapy has been started (3) Hypertension: Plan: Hydralazine has been started for blood pressure control. This replaces lisinopril. Blood pressure is much improved. Hydralazine uptitrated again today, November 26. Cardiac echo reveals mild left ventricular hypertrophy as expected due to his history of uncontrolled hypertension (4) Alcohol use: Plan: Considerable beer intake daily. No prior history of DTs but he did experience DTs here. Continue AWSS protocol. Continuie Folate and thiamine replacement. Librium taper (5) B12 deficiency: Plan: IM replacement ordered. Eventual switch to oral supplementation Plan IPR at discharge when arrangements are finalized. He is medically stable now. Admission and Anticipated Discharge Date Admission Date: November 22, 2023 Supervising Physician Co-Signing Physician Notes I personally saw and examined the patient. I independently reviewed the labs, EKG, imaging, problem list, medication list, past medical history and family history. I verified all freed points and agree with Deshaun Priest PA-C with the following exceptions and/or additions: 68 year old male presents to the ER with left facial weakness and left sided weakness. Patient denies these symptoms when seen and just feels his balance has been off recently. Reportedly drinks 15 beers/day. O/E Alert and orientated x3, mild left facial droop, difficulty hearing but no definitive confusion, no expressive/depressive aphasia, no pronator drift, EOMI intact without diplopia per patient (although this was noted on triage note), PERRL, normal finger-nose testing, no psychomotor agitation A/P Stroke-like symptoms - no current cerebellar signs on exam. Brain MRI. Consult neurology. Hypertensive urgency - Brain MRI to assess for PRES. Plan to lower BP slowly over the next 24-48 hours. Initial goal sBP < 200. Start lisinopril 10mg PO and labetalol PRN. Suspect his high BP is somewhat chronic since he is supposed to take BP medications at baseline but discontinued this himself and has not taken in years. Alcohol use disorder - surprisingly he does not appear to be in withdrawal despite negative alcohol level. No tremors or tachycardia. Hypertension suspected to be chronic. AWSS ordered and will use lorazepam one dose if scoring above 6 at which point Librium or phenobarbital taper can be started Possible Wernicke's encephalopathy - no ophthalmoplegia on exam but he has noticed changes with his eyesight, mentation and gait. B1 level taken and will start high dose thiamine @ 500mg IV q8h. Subjective Alert and oriented. Pleasant. Hydralazine uptitrated for better blood pressure control. Chlordiazepoxide dosage was down titrated to twice daily dosing on November 25. This will be down titrated again in 48 hours if he remains stable. IPR placement is pending. He is medically stable for discharge once final authorization is received Review of Systems 2 Review of Systems: Constitutional-no fever or chills ENT-no blurred vision, no double vision, no epistaxis, no sore throat Respiratory-no cough, no wheezing, no shortness of breath Cardiac-no palpitations, no chest pain, no syncope GI-no nausea, vomiting, diarrhea, melena, hematochezia -no urinary retention, no urinary incontinence, no dysuria, no hematuria Musculoskeletal-no joint pain, no muscle tenderness Skin-no bruising, no rashes, no pruritus Neuro-continued ataxia. Mild left facial droop Psych-no depression, no anxiety Physical Exam 2 Physical Exam: General-awake . Oriented to name and place. Alert. No fever HEENT-head atraumatic and normocephalic Neck-no lymphadenopathy or thyromegaly, trachea midline Chest-clear to auscultation anteriorly. No rales, wheezing or rhonchi Cardiac-regular rate and rhythm, normal S1 and S2 Abdomen-normal bowel sounds no hepatosplenomegaly Extremities-no cyanosis, clubbing, or edema Neuro-mild left facial droop. Partial right 3rd nerve palsy. He remains ataxic Psych-he does not appear depressed. No active DTs Results & Data Results & Data Vital Signs (Past 12 Hours) Vital Signs Temp Pulse Pulse Resp BP BP Pulse Ox 11/27/23 15:05 36.6 C 63 19 191/93 H 94 11/27/23 15:04 66 11/27/23 11:41 36.4 C L 68 19 174/94 H 96 11/27/23 07:30 58 L 11/27/23 07:10 36.4 C L 60 19 162/77 H 96 11/27/23 04:07 36.5 C 57 L 14 177/87 H 96 11/27/23 03:29 70 O2 Del Method 11/27/23 15:05 Room Air 11/27/23 15:04 11/27/23 11:41 Room Air 11/27/23 07:30 11/27/23 07:10 Room Air 11/27/23 04:07 Room Air 11/27/23 03:29 Laboratory Results 11/27/23 05:24 11/27/23 05:24 PG Care Time/CCT Total # of Minutes Spent Total Time Spent with Patient: Total time spent is greater than 50% in coordination of care (as documented) at patient's floor/unit and/or counseling patient: Coding Level of Care Code 79396 SUB INP/OBS CARE 3/50MIN Diagnoses Delirium tremens F10.931 Stroke-like symptoms R29.90 Hypertension I10 Alcohol use Z78.9 B12 deficiency E53.8
[2023-11-27] MEDS: hydrALAZINE HCL 25 MG TAB PO SCH (20:00)
[2023-11-28 06:09] LABS: Basophils # (auto) 0.03 K/uL (0.00-0.20); Basophils % (auto) 0.4 %; Eosinophils # (auto) 0.38 K/uL (0.00-0.50); Eosinophils % (auto) 4.8 %; Hematocrit (blood only) 44.6 % (42.0-52.0); Hemoglobin 14.8 g/dl (14.0-18.0); Immature Granulocytes # (auto) 0.06 K/uL (0.01-0.20); Immature Granulocytes % (auto) 0.8 %; Lymphocytes # (auto) 2.07 K/uL (1.20-3.40); Lymphocytes % (auto) 26.3 %; Mean Corpuscular Hemoglobin 31.6 pg (25.0-34.0); Mean Corpuscular Hgb Conc 33.2 g/dL (32.0-36.0); Mean Corpuscular Volume 95.1 fL (80.0-100.0); Mean Platelet Volume 10.6 fL (9.4-12.4); Monocytes # (auto) 0.91 K/uL (0.11-0.59); Monocytes % (auto) 11.6 %; Neutrophils # (auto) 4.42 K/uL (1.40-6.50); Neutrophils % (auto) 56.1 %; Platelet Count 258 K/uL (130-400); RDW Coefficient of Variation 13.3 % (11.5-14.5); RDW Standard Deviation 46.8 fL (36.4-46.3); Red Blood Count 4.69 M/uL (4.70-6.10); White Blood Count 7.87 K/ul (4.8-10.8)
[2023-11-28 06:26] LABS: BUN Creatinine Ratio 15.2 (10-20); Calcium 8.7 mg/dl (8.6-10.3); Creatinine Clr Calc Pharmacy 86.1 ml/min; Est GFR (African American) 97.3 ml/min; Potassium 3.7 mmol/L (3.5-5.1)
--- NOTE | 2023-11-28 10:18 | Neurology Progress Note ---
Date of Service November 28, 2023 Assessment & Plan (1) Acute CVA (cerebrovascular accident): (2) Hypertensive emergency: (3) Occlusion of right posterior cerebral artery: (4) Double vision: (5) Confusion: (6) Dizziness: (7) B12 deficiency: (8) Chronic cerebral ischemia: Plan This is a complicated patient with a number of symptoms over the last 4 weeks consistent with a right cerebral peduncle stroke. MRI shows a subacute stroke in that area. He had balance difficulties, intermittent double vision, dizziness, decreased hearing, and some previous nausea and vomiting. On exam today there is a slight left facial asymmetry and an improving right painless, pupil sparing, partial 3rd nerve palsy. He has mild weakness in the left arm greater than all of these symptoms are consistent with a cerebral peduncle stroke on the right. Overall he is improving neurologically. The etiology of the stroke is likely secondary to right posterior cerebral artery occlusion seen on CT angiography. This artery sends deep branches to the cerebral peduncle. This was likely ischemic in nature. He had severe hypertension on admission which could have acutely led to his stroke. He has a longstanding history of hypertension and has not been compliant with medication. He has old chronic cerebral ischemia predating 2017 in the right temporal and frontal lobes as well as some other nonspecific small vessel ischemic changes seen on MRI. Hypertension could give him encephalopathy, but I believe he had more of a hearing deficit November 22 than an actual encephalopathy. Today he has some confusion/sleepiness which is likely secondary to medication effect given in an effort to prevent alcohol withdrawal symptoms (Librium) He has B12 deficiency which could add to cognitive defects and balance problems/ataxia (due to posterior column spinal cord effects) Finally, he has excessive alcohol usage which could give him direct cerebral and peripheral nervous system effects (as well as lead to vitamin deficiencies). Recommendations: 1. Control blood pressure as you are doing, slowly bringing the blood pressure down over time to ultimately end up at a mean arterial pressure of approximately 95-100. 2. Continue 81 mg aspirin tablet daily 3. Replace B12 with subcu injections 4. Ideally, to help his nervous system he needs to discontinue all alcohol usage. He is being treated for alcohol withdrawal. 5. Physical and Occupational Therapy consults, and increase activity as able 6. Low his total cholesterol was technically normal at less than 200, low to medium dose statin is reasonable Overall, I spent a total of 35 minutes with this case including review of records, direct evaluation of the patient at bedside, report generation, and discussion of the case with the patient, RN, and bedside, and Dr. Houston, including differential diagnosis and treatment options. Admission and Anticipated Discharge Date Admission Date: November 22, 2023 Subjective Patient has no complaint of pain or headache. He believes that he is still weak but cannot be specific and tells me it is "all over". Patient is calm and has had no tremors or withdrawal type symptoms over the last 24 hours. He is still on Librium 10 mg twice a day and Ativan only as needed. Blood pressure is 172/95. He is afebrile Laboratory studies show normal CBC and Chem profile Results & Data Vital Signs (Past 12 Hours) Vital Signs Temp Pulse Pulse Resp BP BP Pulse Ox 11/28/23 09:52 63 11/28/23 07:14 36.5 C 55 L 16 172/95 H 98 11/28/23 03:00 36.5 C 55 L 16 165/79 H 96 11/28/23 00:15 63 11/27/23 23:07 36.7 C 63 17 170/93 H 97 O2 Del Method 11/28/23 09:52 11/28/23 07:14 Room Air 11/28/23 03:00 Room Air 11/28/23 00:15 11/27/23 23:07 Room Air Exam (Neuro) Physical Exam: Patient is awake and alert. Speech is without obvious aphasia or dysarthria. Mood is reasonable but affect is somewhat flat. He is reasonably pleasant and cooperative otherwise. Extraocular eye muscles are mostly intact although he still has an inability to completely abduct his right eye with left gaze. It is improved compared to previous. He has a mild asymmetry/weakness at the corner of the mouth on the left compared to the right Coordination is reasonable in the arms without tremor or ataxia. Strength is 4/5 in the left upper extremity and 5/5 in the right upper extremity Leg strength was 4+/5 on the left and 5/5 on the right PG Care Time/CCT Total # of Minutes Spent Total Time Spent with Patient: Total time spent is greater than 50% in coordination of care (as documented) at patient's floor/unit and/or counseling patient: Coding Level of Care Code 92072 SUB INP/OBS CARE 2/35MIN Diagnoses Acute CVA (cerebrovascular accident) I63.9 Hypertensive emergency I16.1 Occlusion of right posterior cerebral artery I66.21 Double vision H53.2 Confusion R41.0 Dizziness R42 B12 deficiency E53.8 Chronic cerebral ischemia I67.82 Time Spent (min) 35
--- NOTE | 2023-11-28 13:20 | Discharge Summary ---
Date of Service November 28, 2023 Admission HPI Per Admitting Provider Gonzales is a 68-year-old male with PMH of HTN and alcohol use. He presented for dizziness, gait ataxia, and increased confusion x 1 month. Patient reports he has been noncompliant with his current hypertension medications for the past year. He notes he did fall 3 weeks ago while in the bathroom and struck his head; no LOC, was able to get back up on his own; he believes he got tangled up in the towel. Left-sided facial droop started 2 weeks ago. Patient reports that he drinks 15 beers daily, with his last drink being the evening of . He denies history of seizures or alcohol withdrawal, even when cutting back at times. Patient denies PMH of DE, CVA, but notes that his younger brother has had 2 MIs, and that his mother had a stroke. Patient denies smoking, but endorses chewing snuff, and daily alcohol use. He does not use a cane or walker for ambulation at baseline. Patient is hypertensive at 197/132 at time of admission. ED course: Labetalol 10 mg IV x 3 ROS: Patient endorses dizziness both at rest and with exertion, confusion, and changes in vision (diplopia). Patient denies PAIGE, fever, chills, nightsweats, photophobia, facial droop, slurred speech, chest pain, SOB, or abdominal pain. Principal Diagnosis Subacute right cerebral peduncle CVA, vitamin B12 deficiency, acute alcohol withdrawal with DTs Discharge Exam General-awake . Oriented to name and place. Alert. No fever HEENT-head atraumatic and normocephalic Neck-no lymphadenopathy or thyromegaly, trachea midline Chest-clear to auscultation anteriorly. No rales, wheezing or rhonchi Cardiac-regular rate and rhythm, normal S1 and S2 Abdomen-normal bowel sounds no hepatosplenomegaly Extremities-no cyanosis, clubbing, or edema Neuro-mild left facial droop. Partial right 3rd nerve palsy. He remains ataxic Psych-he does not appear depressed. No active DTs Discharge Data Allergies Allergy/AdvReac Type Severity Reaction Status Date / Time phenytoin Allergy Unknown unknown Verified 10/13/17 01:21 Consultations 11/22/23 13:30 ED Decision to Admit Stat 11/22/23 16:51 Consult Neurology Routine Ordered Studies 11/22/23 12:12 CT angio head w con Stat CT angio neck with con Stat CT head/brain wo con Stat 11/22/23 13:57 MRI Brain [MR brain wo con] Stat 11/24/23 03:[address] [CT head/brain wo con] Stat Hospital Course (1) Delirium tremens: DTs have resolved. Continue treatment for alcohol withdrawal. Supportive care. AWSS protocol. Librium down titrated to twice daily dosing on November 25. Continue tapering down dose every 3 days until off. (2) Stroke-like symptoms: It appears he has a subacute right cerebral peduncle CVA. 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 Appreciate neurology consultation and recommendations. Continue OT, PT, and speech evaluations. He is a candidate for [facility] at the time of discharge. Continue aspirin therapy. Statin therapy has been started (3) Hypertension: Hydralazine has been started for blood pressure control. This replaces lisinopril. Blood pressure is much improved. Hydralazine uptitrated on November 26 and again todayNovember 27. Cardiac echo reveals mild left ventricular hypertrophy as expected due to his history of uncontrolled hypertension (4) Alcohol use: Considerable beer intake daily. No prior history of DTs but he did experience DTs here. Continue AWSS protocol. Continuie Folate and thiamine replacement. Librium taper (5) B12 deficiency: IM replacement ordered. Switch to oral B12 replacement todayNovember 27 Plan Discharge to [facility] todayNovember 27 Total Time Total Time Spent Total Time Spent (In Minutes): 50 minutes Discharge Plan Discharge Items Patient Disposition: Transfer Inpatient Rehab Fac Reason For Visit: DIZZINESS,RECURRENT FALLS, DIPLOPIA Discharge Diagnosis: Subacute right cerebral peduncle CVA, vitamin B12 deficiency, alcohol withdrawal with DTs Condition on Discharge: Good Activity: Resume your previous activity Non-emergency contact: Primary Care Provider Call non-emergency contact if: you have any medication questions and your symptoms worsen Follow-up/Referrals: Keith Alex [Primary Care Provider] - Diet: Regular and Heart Healthy Addtl Attending Provider Instructions: See primary care provider soon as possible after discharge from [facility] Pending Studies at Discharge: No Stand-Alone Forms: My [facility], Medications to Prevent Stroke Skilled Items Patient informed of condition?: Yes DNR: No Discharge Level of Care: Acute rehab Communicable Disease: No Discharge Prognosis: Stable Lines: None Urinary Catheter: No Medications and DC Order Prescriptions: New folic acid 1 mg Tablet 1 mg PO QAM Qty: 0 0RF atorvastatin 40 mg Tablet 40 mg PO QAM Qty: 0 0RF cyanocobalamin (vitamin B-12) 500 mcg Tablet 500 mcg PO QAM Qty: 0 0RF hydralazine 50 mg Tablet 100 mg PO TID Qty: 0 0RF aspirin 81 mg Tablet,Delayed Release (Dr/Ec) 81 mg PO QAM Qty: 0 0RF nicotine 7 mg/24 hr Patch 24 Hour 14 mg transdermal QAM Qty: 0 0RF chlordiazepoxide HCl 10 mg Capsule See Rx Instructions .ROUTE .COMPLEX Qty: 0 0RF Rx Instructions: 10 mg orally twice a day for 1 day, then 10 mg daily for 3 days, then stop No Action No Known Home Medications Discharge Orders: Discharge Order (Routine); Ordered 11/28/23 Ordered By: Micha Houston Admission Data Admit Date/Time: 11/22/23 14:30 Attending Provider: Micha Houston Admit Provider: Ashwin Wei Primary Care Provider: Keith Alex Other Providers: Ashwin Wei; Tim Vallejo; [facility] Coding Level of Care Code 68960 INP/OBS DISCH >30 MIN Diagnoses Delirium tremens F10.931 Stroke-like symptoms R29.90 Hypertension I10 Alcohol use Z78.9 B12 deficiency E53.8
[2023-11-28] MEDS: hydrALAZINE TAB 50 MG TAB PO SCH (15:20)
[2023-11-28] MEDS ORDERED: DICLOFENAC SOD 1% GEL 100 GM TUBE EXT SCH (21:00)
[2023-11-29] MEDS ORDERED: CYANOCOBALAMIN (B-12) 500 MCG TABLET PO SCH (09:00)
== END 2023-11-28 17:33 | DRG 65 ==
LOC: ED 11:56 → 4W 14:30 → SUATTDRO 14:30 → 4W 16:18